=== PATIENT | female | born 1945 | race Caucasian/White ===

== ENCOUNTER 2019-10-26 10:35 | Emergency (ER) | payer MEDICARE, BC, SELFPAY ==
[2019-10-26 10:37] VITALS: BP 197/64; PULSE 92; RESP 18; TEMP 37.1; O2SAT 100
--- NOTE | 2019-10-26 11:19 | ED.URI ---
HPI - URI/Sore Throat General Chief Complaint: Upper Respiratory Infection Stated Complaint: cough/sore throat Time Seen by Provider: 10/26/19 11:19 Source: patient and RN notes reviewed Mode of arrival: ambulatory Limitations: no limitations History of Present Illness HPI Narrative: 74-year-old female who presents to the [facility] care with complaints of 3 to 4 days of sinus congestion and drainage, intermittent cough, chills, body aches and sore throat. Patient states that she has had chronic sinus issues in the past and takes daily Flonase and has been taking Mucinex also. Patient states that cough has increased in the past 24 hours, remains dry with no shortness of breath or any wheezing noted. Respirations even and non labored with no tachypnea, SAO2 100% on room air. Patient states that she did take a flu immunization this season. MD elicited complaint: fever (Has felt feverish and chilled), cough, sore throat, rhinorrhea, nasal congestion and sinus pain Pertinent past history: sinusitis and seasonal allergies Onset (ago): day(s) (5) Consistency: progressively worsening Severity: similar to previous episodes Description of mucous: clear and yellow Able to tolerate fluids by mouth: Yes Exacerbating factors: exertion, changing head position and deep breaths Relieving factors: other (flonase helps some) Associated symptoms: chills, rhinorrhea, nasal congestion, sore throat and cough Treatments prior to arrival: aspirin and other (Mucinex) Related Data Allergies Allergy/AdvReac Type Severity Reaction Status Date / Time azithromycin Allergy Unknown Unknown Verified 09/17/19 15:48 insect venom Allergy Unknown Skin Verified 09/17/19 15:48 Reaction lactase Allergy Unknown Nausea Verified 09/17/19 15:48 nut - unspecified Allergy Unknown Unknown Verified 09/17/19 15:48 prednisone Allergy Unknown Unknown Verified 09/17/19 15:48 TETANUS & DIPHTHERIA Allergy Unknown Uncoded 08/16/19 09:45 TOX,ADULT Review of Systems Review of Systems: Narrative: CONSTITUTIONAL unknown if fever,positive chills, or sweats. EYES: Denies visual changes, redness, or discharge. ENT:positive rhinorrhea, congestion, sore throat, no otalgia. CARDIOVASCULAR: Denies chest pain, palpitations, or edema. RESPIRATORY:Positive cough denies dyspnea. GASTROINTESTINAL: Denies abdominal pain, nausea, vomiting, or diarrhea. GENITOURINARY: Denies dysuria or hematuria. SKIN: Denies rash or itching. MUSCULOSKELETAL: Denies back pain, joint pain, bodyaches NEUROLOGIC: Denies headache, numbness, or weakness. PSYCHIATRIC: Denies anxiety or depression. All systems reviewed & are unremarkable except as noted in HPI and below PMFSH Past Medical History Medical History (Updated 10/29/19 @ 15:36 by Estee Carvajal NP) Arthritis GERD (gastroesophageal reflux disease) Hypothyroidism IBS (irritable bowel syndrome) Seasonal allergies Vertigo Surgical History Surgical History (Updated 10/29/19 @ 15:33 by Estee Carvajal NP) H/O breast biopsy Family History Family History Mother Family history of osteoporosis Family history of arthritis Family history of hearing loss Father Family history of glaucoma Other Family history of congestive heart failure Social History Social History (Updated 10/29/19 @ 15:31 by Estee Carvajal NP) Smoking status: Never smoker Alcohol intake: never Living arrangements: with family Occupation/Education: retired Gender identity (if verbalized by the patient): Female Comments At time of signature, agree with nursing past medical, social history. There is no relevant family history pertinent to the presenting complaint Exam Narrative: Exam Narrative: GENERAL: Well-appearing, well-nourished, and in no acute distress. HEAD: Normocephalic, atraumatic. EYES: PERRLA and EOMI. ENT: Nares red, clear to thin yellow rhinorrhea no epistaxis. Mucous membranes moist.T
== END 2019-10-26 11:40 | disposition home or self-care (01) ==
PROVIDERS: Emergency Provider Registered Nurse
DX: J10.1 Influenza due to other identified influenza virus with other respiratory manifestations (principal); M19.90 Unspecified osteoarthritis, unspecified site; K21.9 Gastro-esophageal reflux disease without esophagitis; E03.9 Hypothyroidism, unspecified
CPT/HCPCS: 87804; 99213; G0463

== ENCOUNTER 2022-06-18 13:07 | Outpatient (CLI) | payer MEDICARE, BC, SELFPAY ==
--- NOTE | 2022-06-18 13:25 | ECHO_ITS ---
Patient Info Name: Bela Epps Age: 76 years : 1945 Gender: Female Ht: 62 in Wt: 135 lbs BSA: 1.65 m2 HR: 82 bpm BP: 140 / 68 mmHg Technical Quality: Fair Exam Date: 06/18/2022 1:46 PM Exam Location: [facility] Patient Status: Outpatient Admit Date: 06/18/2022 Staff Ordering Physician: Michael Nick MD Ticket Chopper Assembler: Supriya Duff RDCS Attending Provider: Michael Nick MD Referring Physician: Sandoval HWANG; Exam Type: CA echo doppler color flow Study Info Indications R01.1 - Cardiac murmur, unspecified Complete two-dimensional, color flow and Doppler transthoracic echocardiogram is performed. Summary 1. Complete two-dimensional, color flow and Doppler transthoracic echocardiogram is performed. 2. Left ventricular chamber dimension is normal. 3. Left ventricular systolic function is normal, estimated at 65-70%. 4. The left ventricular diastolic function is grade I diastolic dysfunction. 5. E/e' 16 is elevated. 6. There is moderate aortic valve sclerosis. 7. The mitral valve has moderately calcified annulus. 8. There is mild mitral valve regurgitation. 9. There is mild tricuspid valve regurgitation. 10. No pulmonary hypertension, estimated pulmonary arterial systolic pressure is 28 mmHg. Left Ventricle E/e' 16 is elevated. Left ventricular chamber dimension is normal. Left ventricular systolic function is normal, estimated at 65-70%. The left ventricular diastolic function is grade I diastolic dysfunction. Right Ventricle Right ventricular chamber dimension is normal. Right ventricular systolic function is normal. Left Atria Left atrial chamber dimension is normal. Right Atria Right atrial chamber dimension is normal. Aortic Valve The aortic valve is trileaflet. There is moderate aortic valve sclerosis. There is no aortic valve stenosis. There is no aortic valve regurgitation. Pulmonic Valve There is no pulmonic regurgitation. Mitral Valve The mitral valve has moderately calcified annulus. There is no mitral valve stenosis. There is mild mitral valve regurgitation. Tricuspid Valve There is mild tricuspid valve regurgitation. No pulmonary hypertension, estimated pulmonary arterial systolic pressure is 28 mmHg. Pericardium/Pleural There is no pericardial effusion. Inferior Vena Cava Normal inferior vena cava with >50% collapse upon inspiration consistent with normal right atrial pressure, 5 mmHg. Aorta The aortic root size at the sinus of Valsalva is normal. Left Ventricular Outflow Tract Name Value Normal LVOT 2D LVOT Diameter 2.0 cm LVOT Doppler LVOT Peak Gradient 8 mmHg LVOT Mean Gradient 5 mmHg LVOT VTI 30 cm LVOT VTI/AV VTI Ratio 0.7 LVOT Stroke Volume 97 ml LVOT CO 21.6 l/min LVOT CI 13.1 l/min/m2 Pulmonic Valve Name
== END 2022-06-18 13:08 | disposition home or self-care (01) ==
PROVIDERS: PCP Family Medicine; Visit Provider Family Medicine
DX: R01.1 Cardiac murmur, unspecified (principal); I36.1 Nonrheumatic tricuspid (valve) insufficiency; I34.0 Nonrheumatic mitral (valve) insufficiency
CPT/HCPCS: 93306

== ENCOUNTER 2022-12-12 09:40 | Emergency (ER) | payer MEDICARE, BC, SELFPAY ==
[2022-12-12 09:46] VITALS: BP 139/68; PULSE 94; RESP 16; TEMP 36.7; O2SAT 100
--- NOTE | 2022-12-12 10:17 | ED.LOWEXIN ---
HPI - Extremity Injury (Lower) General Chief Complaint: Extremity Injury, Lower Stated Complaint: rt knee injury Source: patient, family and RN notes reviewed History of Present Illness HPI Narrative: 77-year-old female presents to urgent care with side. Patient is reporting right knee soreness for the last few days. Patient denies any injury or trauma. Denies any numbness, tingling, limited range of motion, fevers, chills, chest pain, or shortness of breath. Patient has been taking hydrocodone and ibuprofen with minimal relief. Patient reports getting a steroid injection into this knee 6 months ago by her primary care physician with good results. Some parts of this dictation were generated by voice recognition software and may contain typographical and/or grammatical inaccuracies. Related Data Allergies Allergy/AdvReac Type Severity Reaction Status Date / Time azithromycin Allergy Unknown Unknown Verified 12/12/22 09:47 insect venom Allergy Unknown Skin Verified 12/12/22 09:47 Reaction lactase Allergy Unknown Nausea Verified 12/12/22 09:47 nut - unspecified Allergy Unknown Unknown Verified 12/12/22 09:47 prednisone Allergy Unknown Shakiness Verified 12/12/22 10:16 TETANUS & DIPHTHERIA Allergy Unknown Unknown Uncoded 12/12/22 09:47 TOX,ADULT Review of Systems Review of Systems: Pertinent positives and pertinent negatives per HPI. [facility] Past Medical History Medical History Arthritis Cataract (05/03/21) Right GERD (gastroesophageal reflux disease) Hypothyroidism IBS (irritable bowel syndrome) Irritable bowel syndrome with diarrhea Seasonal allergies Vertigo Surgical History Surgical History H/O breast biopsy Family History Family History Mother Family history of osteoporosis Family history of arthritis Family history of hearing loss Father Family history of glaucoma Other Family history of congestive heart failure Social History Social History (Updated 10/06/22 @ 10:31 by Tracy Collazo MA) Smoking status: Never smoker Alcohol intake: never Lack of Transportation: No Lack of Food: Sometimes True Current Housing: I Have Housing Concerned About Future Housing: No Difficulty Paying Gas/Electric Bills: No Difficulty Paying for Meds: No Currently Unemployed: No Education: High School Diploma/GED Difficulty w/ Childcare or Family Care: No Living arrangements: with family Occupation/Education: retired Gender identity (if verbalized by the patient): Female Comments At the time of my signature, I reviewed and agree with the nursing past medical, surgical, social, and family history. There is no relevant family history pertinent to the patient complaint. Exam Narrative: GENERAL: This is a well-nourished, well-developed patient, in no apparent distress. HEAD: normocephalic, atraumatic. EYES: PERRL. Sclera clear/white. Vision is grossly intact. EARS: External ears normal, auditory canals clear and without drainage, TMs normal without perforation. Hearing grossly intact. NOSE: External nose normal with no obvious nasal discharge, nares without redness, no rhinorrhea. THROAT: Mucous membranes moist, posterior pharynx clear. NECK: Neck supple, non-tender without lymphadenopathy, masses or thyromegaly. CARDIOVASCULAR: Regular rate and rhythm without murmurs, gallops, or rubs. RESPIRATORY: Clear to auscultation. Breath sounds equal bilaterally. No wheezes, rales, or rhonchi. GASTROINTESTINAL: Abdomen soft, non-tender, nondistended. Bowel sounds are active. No hepato-splenomegaly, or palpable masses. No guarding. SKIN: warm, intact with no suspicious lesions or rash, good texture and turgor. NEURO: awake, alert, and oriented to person, place and time. There were no obvious focal neurologic abnormalities. E
== END 2022-12-12 10:22 | disposition home or self-care (01) ==
PROVIDERS: Emergency Provider Nurse Practitioner Family; PCP Family Medicine
DX: M17.11 Unilateral primary osteoarthritis, right knee (principal); M19.90 Unspecified osteoarthritis, unspecified site; K21.9 Gastro-esophageal reflux disease without esophagitis; E03.9 Hypothyroidism, unspecified
CPT/HCPCS: 99213; G0463

== ENCOUNTER → 2023-03-29 08:16 | Outpatient (CLI) | payer MEDICARE, BC, SELFPAY ==
--- NOTE | ~2023-03-29 | MR_ITS ---
MRI of the brain Clinical History: Amnesia Technique: Axial and sagittal T1-weighted images were acquired. These were followed by axial T2-weigh melanie, diffusion weighted, gradient, and FLAIR images. Findings: There is no acute infarct, internal hemorrhage, or mass lesion. There are moderate chronic microvascular ischemic changes throughout the periventricular white matter bilaterally. Ventricles and subarachnoid spaces are mildly dilated. Orbits are unremarkable. Paranasal sinuses and mastoid air cells are clear. Major intracranial flow voids are intact. Sagittal midline structures are intact. IMPRESSION: No acute infarct, intracranial hemorrhage, or mass lesion. Moderate chronic microvascular ischemic changes. Reviewed, dictated and finalized at [facility].
== END ==
PROVIDERS: PCP Family Medicine; Visit Provider Family Medicine
DX: R41.3 Other amnesia (principal)
CPT/HCPCS: 70551

== ENCOUNTER 2023-04-04 12:06 | Emergency (ER) | payer MEDICARE, BC, SELFPAY ==
[2023-04-04 12:08] VITALS: BP 152/62; PULSE 91; RESP 18; TEMP 36.8; O2SAT 100
--- NOTE | 2023-04-04 12:38 | ECG_ITS ---
Measurements Intervals [place] Rate: 77 P: 66 IA: 148 QRS: 4 QRSD: 96 T: 48 QT: 381 QTc: 431 Interpretive Statements SINUS RHYTHM POSSIBLE LEFT ATRIAL ENLARGEMENT INCOMPLETE RIGHT BUNDLE BRANCH BLOCK BORDERLINE ECG NO PREVIOUS ECG AVAILABLE FOR COMPARISON Electronically Signed On 04-04-2023 12:46:57 CDT by Rashawn Berry D.O.
[2023-04-04 14:00] LABS: Basophils Absolute Auto 0.1 K/mm3 (0.0-0.1); Basophils Percent Auto 0.6 % (0.2-1.2); Eosinophils Absolute Auto 0.1 K/mm3 (0-0.3); Eosinophils Percent Auto 1.1 % (0-4.4); Hematocrit 42.1 % (37.0-47.0); Hemoglobin 13.8 g/dL (12.0-15.0); Immature Granulocyte Absolute 0.03 K/mm3 (0.00-0.031); Immature Granulocyte Percent A 0.4 % (0-0.5); Lymphocytes Absolute Auto 1.19 K/mm3 (0.9-3.2); Lymphocytes Percent Auto 14.9 % (18.3-44.2); Mean Corpuscular HGB Conc 32.8 g/dl (32-36); Mean Corpuscular Hemoglobin 30.3 pg (26-34); Mean Corpuscular Volume 92.3 fl (80-100); Monocytes Absolute Auto 0.6 K/mm3 (0.1-0.6); Monocytes Percent Auto 7.9 % (2.6-8.5); Neutrophils Percent Auto 75.1 % (45.5-73.1); Platelet Count Result 272 k/mm3 (150-375); Red Blood Count 4.56 M/mm3 (4.2-5.4); Red Cell Distribution Width 12.7 % (11.5-14.5)
[2023-04-04 14:11] LABS: Alanine Aminotransferase 19 U/L (6-35); Albumin Level 4.6 g/dL (3.5-5.1); Alkaline Phosphatase 84 U/L (38-126); Anion Gap 9 mmol/L (8-16); Aspartate Amino Transferase 32 U/L (14-36); Bilirubin,Total 0.5 mg/dL (0.2-1.3); Blood Urea Nitrogen 12 mg/dL (7-17); Calcium 9.3 mg/dL (8.4-10.2); Carbon Dioxide 26 mmol/L (22-30); Chloride 101 mmol/L (98-107); Estimated Glomerular Filt Rate > 60; Glucose 87 mg/dL (65-110); Potassium 3.6 mmol/L (3.4-5.0); Sodium 136 mmol/L (137-145)
--- NOTE | 2023-04-04 14:27 | ED.GENADULT ---
HPI - General Adult General Chief complaint: Arrhythmia/Palpitations Stated complaint: palp Time Seen by Provider: 04/04/23 13:06 History of Present Illness HPI narrative: 77-year-old female present to the emergency department for evaluation of heart palpitations and anxiety. Patient does have a history of heart palpitations and anxiety. Patient states this morning she was having some increased anxiety and did take her buspirone. This is a medication that she had been prescribed previously but had not been taking it. After taking the medication approximately an hour and a half later she began having some increased anxiety and heart palpitations. Upon arrival to the emergency department patient states she is still having some anxiety but is no longer having heart palpitations. Patient denies any associated chest pain or shortness of breath. Patient does have follow-up with her primary care physician on Monday. Related Data Allergies Allergy/AdvReac Type Severity Reaction Status Date / Time azithromycin Allergy Unknown Unknown Verified 03/24/23 14:29 insect venom Allergy Unknown Skin Verified 03/24/23 14:29 Reaction lactase Allergy Unknown Nausea Verified 03/24/23 14:29 nut - unspecified Allergy Unknown Unknown Verified 03/24/23 14:29 prednisone Allergy Unknown Shakiness Verified 03/24/23 14:29 TETANUS & DIPHTHERIA Allergy Unknown Unknown Uncoded 03/24/23 14:29 TOX,ADULT Review of Systems Review of Systems: All systems reviewed & are unremarkable except as noted in HPI and below PMFSH Past Medical History Medical History Arthritis Cataract (05/03/21) Right GERD (gastroesophageal reflux disease) Hypothyroidism IBS (irritable bowel syndrome) Irritable bowel syndrome with diarrhea Seasonal allergies Vertigo Surgical History Surgical History H/O breast biopsy Family History Family History Mother Family history of osteoporosis Family history of arthritis Family history of hearing loss Father Family history of glaucoma Other Family history of congestive heart failure Social History Social History Smoking status: Never smoker Alcohol intake: never Lack of Transportation: No Lack of Food: Sometimes True Current Housing: I Have Housing Concerned About Future Housing: No Difficulty Paying Gas/Electric Bills: No Difficulty Paying for Meds: No Currently Unemployed: No Education: High School Diploma/GED Difficulty w/ Childcare or Family Care: No Living arrangements: with family Occupation/Education: retired Gender identity (if verbalized by the patient): Female Exam Narrative: APPEARANCE: Well appearing, no pain, no distress, well-nourished. HEAD: normocephalic, atraumatic. EYES: PERRLA/EOMI, conjunctivae clear. NOSE: Normal no drainage EARS:TMS clear with good light reflex. THROAT: Pharynx clear, no exudate. NECK: Supple. No adenopathy, no masses. RESPIRATORY: Airway patent, respirations nonlabored. Clear to auscultation bilaterally, no rales, rhonchi, wheezing. CARDIOVASCULAR: Regular rate and rhythm without murmurs rubs or gallops. ABDOMINAL: Soft, nontender, nondistended, normal bowel sounds MUSCULOSKELETAL: Moves all extremities. Strength/ROM intact, No edema, No calf tenderness. NEURO: Alert. Cranial nerves II through XII intact. Grossly intact SKIN: Warm, dry. Normal Color Course Course Emergency Course: 77-year-old female to the emergency department for evaluation of anxiety and heart palpitations. EKG showed normal sinus rhythm. Patient is afebrile with no leukocytosis. UA showed no significant evidence of infection, urine culture is pending. Patient family updated the results of the work-up and patient was comfortable plan for discharge to
[2023-04-04 15:11] LABS: Acetaminophen < 10 ug/mL (10-30)
[2023-04-04] MEDS: ACETAMINOPHEN 325 MG TABLET 650 MG PO (15:20)
[2023-04-04] MEDS: LORazepam INJ (*CRX) 2 MG/ML VIAL 0.5 MG IV PUSH (15:48)
--- NOTE | 2023-04-04 16:06 | PC.NURSE ---
Urine was sent to lab by RN. Lab states they did not receive sample. Called each floor to check for sample and was unable to locate urine.
[2023-04-04 16:43] LABS: Appearance Urine Clear (Clear); Bacteria Urine None Seen /hpf; Bilirubin Urine Negative (Negative); Blood Urine Negative (Negative); Color Urine Yellow (Yellow); Glucose Urine UA Negative (Negative); Ketones Urine 2+ mg/dL (Negative); Leukocyte Esterase Ur 1+ LEU/UL (Negative); Nitrate Urine Negative (Negative); Non Pathogenic Casts 0-2; Protein Urine Negative (Negative); Squamous Epithelial Cell Urine None seen /hpf (Few); Urobilinogen Urine 0.2 mg/dL (<2.0)
[2023-04-04 16:55] LABS: Add Urine Microscopic? YES
[2023-04-04 17:13] VITALS: BP 132/66; PULSE 90; RESP 12; O2SAT 99
== END 2023-04-04 17:22 | disposition home or self-care (01) ==
PROVIDERS: Emergency Provider Emergency Medicine; PCP Family Medicine
DX: F41.9 Anxiety disorder, unspecified (principal); T43.595A Adverse effect of other antipsychotics and neuroleptics, initial encounter; K21.9 Gastro-esophageal reflux disease without esophagitis; E03.9 Hypothyroidism, unspecified; R82.998 Other abnormal findings in urine; I45.10 Unspecified right bundle-branch block
CPT/HCPCS: 36415; 80053; 80307; 81001; 83735; 84443; 85025; 87086; 87088; 93005; 96374; 99284; A9270; J2060

== ENCOUNTER 2023-05-25 11:55 | Emergency (ER) | payer MEDICARE, BC, SELFPAY ==
--- NOTE | 2023-05-25 12:04 | ED.CHESTPAIN ---
HPI - Chest Pain General Stated Complaint: CHEST PAIN Time Seen by Provider: 05/25/23 12:00 Source: patient Mode of arrival: ambulatory Limitations: no limitations History of Present Illness HPI narrative: Bela is a 77-year-old female patient presenting to the clinic today with complaints of chest pain, palpitations, and shortness of breath x1 hour. She reports that she has a history of anxiety, heart murmur, and vertigo. Is prescribed lorazepam for anxiety however she has discontinued taking this as this makes her vertigo worse. Rates the pain currently a 10/10. Denies any cardiac history other than heart murmurs. She is a nonsmoker. Related Data Allergies Allergy/AdvReac Type Severity Reaction Status Date / Time azithromycin Allergy Unknown Unknown Verified 04/07/23 09:49 insect venom Allergy Unknown Skin Verified 04/07/23 09:49 Reaction lactase Allergy Unknown Nausea Verified 04/07/23 09:49 nut - unspecified Allergy Unknown Unknown Verified 04/07/23 09:49 prednisone Allergy Unknown Shakiness Verified 04/07/23 09:49 buspirone AdvReac Severe Agitated Verified 04/07/23 10:04 TETANUS & DIPHTHERIA Allergy Unknown Unknown Uncoded 04/07/23 09:49 TOX,ADULT Review of Systems Review of Systems: Pertinent positives per HPI. Patient denies any fever, chills, rash, headache, visual changes, dizziness, cough, runny nose, sore throat, nausea, vomiting, diarrhea, constipation, abdominal pain, or any urinary issues. PMFSH Past Medical History Medical History Arthritis Cataract (05/03/21) Right GERD (gastroesophageal reflux disease) Hypothyroidism IBS (irritable bowel syndrome) Irritable bowel syndrome with diarrhea Seasonal allergies Vertigo Surgical History Surgical History H/O breast biopsy Family History Family History Mother Family history of osteoporosis Family history of arthritis Family history of hearing loss Father Family history of glaucoma Other Family history of congestive heart failure Social History Social History Smoking status: Never smoker Alcohol intake: never Lack of Transportation: No Lack of Food: Sometimes True Current Housing: I Have Housing Concerned About Future Housing: No Difficulty Paying Gas/Electric Bills: No Difficulty Paying for Meds: No Currently Unemployed: No Education: High School Diploma/GED Difficulty w/ Childcare or Family Care: No Living arrangements: with family Occupation/Education: retired Gender identity (if verbalized by the patient): Female Comments At the time of my signature, I reviewed and agree with the nursing past medical, surgical, social, and family history. There is no relevant family history pertinent to the patient complaint. Exam Narrative: General: Well-developed, well nourished, uncomfortable Head: Normocephalic, atraumatic. Cardio: Regular rate and rhythm, s1 and s2 normal, systolic murmur appreciated-grade 3/6. Resp: Clear to auscultation bilaterally, no rhonchi, rales, wheezing or rubs. Extremities: No deformity, no edema, no cyanosis, capillary refill less than 2 seconds, peripheral pulses palpable and strong. Integumentary: [place], warm, and dry, intact without lesion, no rashes. Course Course Emergency Course: Portions of this record may have been created with voice recognition software. Level of Care: Express Care Visit Vital Signs Vital signs: Vital signs reviewed Transfer Transfered to: [place] Transportation: ALS Transfer rationale: Chest pain, palpitations, shortness of breath Accepting physician: [employer] Transfer comments: Transfer via ALS MDM - Chest Pain MDM Narrative Medical decision making narrative: At the time of visit patient is
[2023-05-25] MEDS: ASPIRIN 81 MG CHEWABLE TABLET 324 MG PO (12:13)
--- NOTE | 2023-05-25 12:18 | ECG_ITS ---
Measurements Intervals [place] Rate: 66 P: 68 [place]: 153 QRS: 12 QRSD: 96 T: 54 QT: 404 QTc: 425 Interpretive Statements SINUS RHYTHM POSSIBLE LEFT ATRIAL ENLARGEMENT INCOMPLETE RIGHT BUNDLE BRANCH BLOCK BORDERLINE ECG COMPARED TO ECG 04/04/2023 12:42:48 NO SIGNIFICANT CHANGES Electronically Signed On 05-26-2023 20:26:54 CDT by Rashawn Berry D.O.
[2023-05-25 12:19] VITALS: BP 149/62; PULSE 75; RESP 18; TEMP 36.3; O2SAT 100
--- NOTE | 2023-05-25 14:42 | PC.NURSE ---
1213 Attempted Saline lock without success-one attempt with #22 catheter. No further attempt as EMS here.
== END 2023-05-25 12:20 | disposition short-term general hospital (02) ==
PROVIDERS: Emergency Provider Nurse Practitioner Family; PCP Family Medicine
DX: R07.9 Chest pain, unspecified (principal); R06.02 Shortness of breath; R00.2 Palpitations; I45.10 Unspecified right bundle-branch block; M19.90 Unspecified osteoarthritis, unspecified site; K21.9 Gastro-esophageal reflux disease without esophagitis; E03.9 Hypothyroidism, unspecified; H26.9 Unspecified cataract
CPT/HCPCS: 93005; 99215; A9270; G0463

== ENCOUNTER 2023-05-25 12:46 | Observation (INO) | payer MEDICARE, BC, SELFPAY ==
[2023-05-25] VITALS (18 sets, daily range): BP systolic 101–146; BP diastolic 59–95; PULSE 71–84; RESP 13–22; TEMP 36.5–37; O2SAT 99–100
--- NOTE | ~2023-05-25 | XR_ITS ---
EXAMINATION: XR chest 2V 05/25/2023 13:38 INDICATION: Chest pain and rapid heart beat PROCEDURE: 2 view chest COMPARISON: No prior studies for comparison. FINDINGS: The lungs are clear. The cardiomediastinal silhouette is within normal limits. There are no pleural effusions. There is no pneumothorax suspected. IMPRESSION: 1: NO ACUTE CARDIOPULMONARY DISEASE. Reviewed, dictated and finalized at location L.
--- NOTE | ~2023-05-25 | US_ITS ---
EXAMINATION: US carotid duplex BI DATE: 05/26/2023 08:03 INDICATION: Dizziness TECHNIQUE: Grayscale, color Doppler, and pulsed Doppler images of the cervical carotid arteries were obtained. The degree of vessel stenosis is placed in one of the following categories: normal, <50%, 5 0-69%, >=70% but less than near-occlusion, near-occlusion, or total occlusion. Note that percent sten osis relative to normal distal artery lumen diameter is indirectly measured from velocity measurement s as described by Andres, et al. Radiology 2003; 229:340-346. Notes: Normal: Peak systolic velocity <125 centimeters/sec and no plaque <50%. Peak systolic velocity <125 ( EDV <40; ICA/CCA PSV ratio <2.0; used these factors only a tandem lesions or low cardiac output or co ntralateral disease) 50-69 %: PSV 125-230 (EDV 40-100; ratio 2-4) >= 70% but less than near occlusion: PSV greater than 230 (EDV > 100; ratio> 4.0) Near Occlusion: PSV that is variable; markedly narrowed lumen Occlusion: Absent flow on color/spectral Doppler and no lumen on vivar scale. COMPARISON: None. FINDINGS: RIGHT: The right common carotid artery (CCA) peak systolic velocity (PSV) is 89 cm/s. The right internal car otid artery (ICA) PSV is 70 cm/s. The right ICA end-diastolic velocity (EDV) is 16 cm/s. The right IC A/CCA PSV ratio is 0.8. The external carotid artery (ECA) PSV is 89 cm/s. There is antegrade flow in the right vertebral artery. LEFT: The left CCA PSV is 105 cm/s. The left ICA PSV is 84 cm/s. The left ICA EDV is 24 cm/s. The left ICA/ CCA PSV ratio is 0.8. The ECA PSV is 83 cm/s. There is antegrade flow in the left vertebral artery. IMPRESSION: 1. Less than 50% stenosis in the right internal carotid artery by sonographic criteria. 2. Less than 50% stenosis in the left internal carotid artery by sonographic criteria. Reviewed, dictated and finalized at location B. IMPRESSION: 1. Less than 50% stenosis in the right internal carotid artery by sonographic darío dotson. 2. Less than 50% stenosis in the left internal carotid artery by sonographic lionel rueda.
--- NOTE | ~2023-05-25 | CT_ITS ---
EXAMINATION: CT abdomen pelvis w con DATE: 05/25/2023 16:53 INDICATION: Abnormal liver function tests. Chest pain. TECHNIQUE: Computed tomography (CT) of the abdomen and pelvis was performed with 100 mL Omnipaque 350 intravenous contrast. Automated exposure control and iterative reconstruction technique were employe d. The dose-length product was 221.07 mGy-cm. COMPARISON: None. FINDINGS: The visualized portions of the lung bases demonstrate minimal atelectasis. No pleural effus ion. The heart size is normal. No pericardial effusion. There are coronary artery calcifications. The re are calcifications of the aortic valve. The liver, gallbladder, and spleen are normal. There are 1 1 mm and 6 mm cystic lesions in the pancreas. The adrenal glands and kidneys are normal. There is div erticulosis of the colon without evidence of diverticulitis. There are no dilated loops of bowel. The appendix is not visualized. There is calcified atherosclerosis of the aorta and many of the other ar teries. There are no pathologically enlarged lymph nodes. There is no free intraperitoneal fluid. The re is moderate thoracic spondylosis and severe lumbar spondylosis. IMPRESSION: 1. Cystic lesions of the pancreas measuring up to 11 mm. The differential diagnosis includes pseudocy st, intraductal papillary mucinous neoplasm (IPMN), mucinous cystic neoplasm (MCN), serous cystadenom a, and neuroendocrine tumor. Consider abdomen MRI without and with contrast in 2 years, but only if t he patient will be a potential future surgical candidate. Reviewed, dictated and finalized at location A. IMPRESSION: 1. Cystic lesions of the pancreas measuring up to 11 mm. The differential diagn osis includes pseudocyst, intraductal papillary mucinous neoplasm (IPMN), mucin ous cystic neoplasm (MCN), serous cystadenoma, and neuroendocrine tumor. Consid er abdomen MRI without and with contrast in 2 years, but only if the patient wi ll be a potential future surgical candidate.
--- NOTE | ~2023-05-25 | MR_ITS ---
MRI of the brain Clinical History: Dizziness Technique: Axial and sagittal T1-weighted images were acquired. These were followed by axial T2-weigh melanie, diffusion weighted, gradient, and FLAIR images. COMPARISON: 03/29/2023 Findings: No acute infarct, intracranial hemorrhage or mass lesion identified. Moderate chronic micro vascular ischemic changes in the periventricular white matter are present, stable from prior exam. Ventricles and subarachnoid spaces are minimally dilated. Orbits are unremarkable. Paranasal sinuses and mastoid air cells are clear. Major intracranial flow voids are intact. Sagittal midline structures are intact. IMPRESSION: No change from prior exam. No acute infarct, intracranial hemorrhage, or mass lesion. Moderate chronic microvascular ischemic changes. Reviewed, dictated and finalized at location . IMPRESSION: No change from prior exam. No acute infarct, intracranial hemorrhage, or mass l esion. Moderate chronic microvascular ischemic changes.
--- NOTE | 2023-05-25 13:02 | ECG_ITS ---
Pat ID: [id number] Last Name: Supriya First Name: Bela Date-Time Performed 05-25-2023 13:02:35 : 1945 Age: 77 yrs Race: Gender: Height/Weight: cm kg RX DX Room 304 Study Site: [facility] Study location: [address] Comment: [id number] Reading Req Provider: Calixto Cortes Measurements Intervals [place] Rate: 76 P: 75 SC: 163 QRS: 12 QRSD: 104 T: 50 QT: 398 Severity: Borderline ECG QTc: 450 Interpretive Statements SINUS RHYTHM ATRIAL PREMATURE COMPLEX POSSIBLE LEFT ATRIAL ENLARGEMENT INCOMPLETE RIGHT BUNDLE BRANCH BLOCK DELAYED PRECORDIAL R/S TRANSITION BORDERLINE ECG Electronically Signed On 05-25-2023 13:20:38 CDT by Rashawn Berry D.O. COMPARED TO ECG 05/25/2023 12:06:43 INCOMPLETE RIGHT BUNDLE-BRANCH BLOCK NOW PRESENT MTDD
[2023-05-25 13:19] LABS: Basophils Absolute Auto 0.1 K/mm3 (0.0-0.1); Basophils Percent Auto 0.4 % (0.2-1.2); Eosinophils Percent Auto 0.3 % (0-4.4); Hematocrit 42.6 % (37.0-47.0); Hemoglobin 13.9 g/dL (12.0-15.0); Immature Granulocyte Absolute 0.04 K/mm3 (0.00-0.031); Immature Granulocyte Percent A 0.3 % (0-0.5); Lymphocytes Absolute Auto 0.68 K/mm3 (0.9-3.2); Lymphocytes Percent Auto 5.1 % (18.3-44.2); Mean Corpuscular HGB Conc 32.6 g/dl (32-36); Mean Corpuscular Volume 95.1 fl (80-100); Mean Platelet Volume 10.1 fl (7.4-10.4); Monocytes Absolute Auto 0.5 K/mm3 (0.1-0.6); Monocytes Percent Auto 3.5 % (2.6-8.5); Neutrophils Absolute Auto 12.1 K/mm3 (1.3-6.7); Neutrophils Percent Auto 90.4 % (45.5-73.1); Platelet Count Result 237 k/mm3 (150-375); Red Blood Count 4.48 M/mm3 (4.2-5.4); Red Cell Distribution Width 12.6 % (11.5-14.5); White Blood Count 13.4 K/mm3 (4.5-10.0)
[2023-05-25 13:28] LABS: Alanine Aminotransferase 118 U/L (6-35); Albumin Level 4.4 g/dL (3.5-5.1); Alkaline Phosphatase 85 U/L (38-126); Anion Gap 7 mmol/L (8-16); Aspartate Amino Transferase 441 U/L (14-36); Blood Urea Nitrogen 17 mg/dL (7-17); Calcium 9.2 mg/dL (8.4-10.2); Carbon Dioxide 27 mmol/L (22-30); Chloride 101 mmol/L (98-107); Estimated CRCL calculation 51 ml/min; Estimated Glomerular Filt Rate > 60; Glucose 129 mg/dL (65-110); Lipase 213 U/L (23-300); Potassium 3.5 mmol/L (3.4-5.0); Sodium 135 mmol/L (137-145)
[2023-05-25 13:33] LABS: Prothrombin Time 13.5 Seconds (11.1-14.7)
[2023-05-25 13:34] LABS: Partial Thromboplastin Time 30.1 SECONDS (22.3-36.8)
[2023-05-25 13:39] LABS: Troponin I < 0.012 ng/mL (0.000-0.034)
--- NOTE | 2023-05-25 15:17 | ECG_ITS ---
Pat ID [id number] Last Name Supriya First Name Bela Date-Time Performed 05-25-2023 15:17:18 1945 Age 77 yrs Race Gender Height/Weight cm kg RX DX Dept Room 304 Study Site [facility] Study Location [address] Comment [id number] Reading MD Req Provider Josh Vivas. Rate [place] QRSd QT QTc P QRS T Severity 72 158 102 428 471 67 4 44 Borderline ECG SINUS RHYTHM POSSIBLE LEFT ATRIAL ENLARGEMENT INCOMPLETE RIGHT BUNDLE BRANCH BLOCK BORDERLINE ECG Electronically Signed On 05-25-2023 16:05:15 CDT by Rashawn Berry D.O. COMPARED TO ECG 05/25/2023 13:02:35 NO SIGNIFICANT CHANGES MTDD
--- NOTE | 2023-05-25 15:32 | ED.CHESTPAIN ---
HPI - Chest Pain General Chief Complaint: Chest Pain Stated Complaint: cp Time Seen by Provider: 05/25/23 14:53 History of Present Illness HPI narrative: Pt says she awoke about 0400 today with chest pain in anterior chest. Pt says the pain lasted for awhile and was not resoving so she came to ER. Pt is currently pain free. says she sees Dr Cintron and heart work up has been fine. Pt saw PCP recently and had meds for anxiety prescribed but she says they make her dizzy so she doesn't dylan them. Pt has some tingling in her fingers and toes and lips now. Related Data Allergies Allergy/AdvReac Type Severity Reaction Status Date / Time azithromycin Allergy Unknown Unknown Verified 05/25/23 13:59 insect venom Allergy Unknown Skin Verified 05/25/23 13:59 Reaction lactase Allergy Unknown Nausea Verified 05/25/23 13:59 nut - unspecified Allergy Unknown Unknown Verified 05/25/23 13:59 prednisone Allergy Unknown Shakiness Verified 05/25/23 13:59 buspirone AdvReac Severe Agitated Verified 05/25/23 13:59 TETANUS & DIPHTHERIA Allergy Unknown Unknown Uncoded 05/25/23 13:59 TOX,ADULT Review of Systems Review of Systems: All systems reviewed & are unremarkable except as noted in HPI and below PMFSH Past Medical History Medical History Arthritis Cataract (05/03/21) Right GERD (gastroesophageal reflux disease) Hypothyroidism IBS (irritable bowel syndrome) Irritable bowel syndrome with diarrhea Seasonal allergies Vertigo Surgical History Surgical History H/O breast biopsy Family History Family History Mother Family history of osteoporosis Family history of arthritis Family history of hearing loss Father Family history of glaucoma Other Family history of congestive heart failure Social History Social History Smoking status: Never smoker Alcohol intake: never Lack of Transportation: No Lack of Food: Sometimes True Current Housing: I Have Housing Concerned About Future Housing: No Difficulty Paying Gas/Electric Bills: No Difficulty Paying for Meds: No Currently Unemployed: No Education: High School Diploma/GED Difficulty w/ Childcare or Family Care: No Living arrangements: with family Occupation/Education: retired Gender identity (if verbalized by the patient): Female Exam Const: General: healthy appearing and no acute distress Nutritional Appearance: well nourished Orientation/consciousness: patient oriented x3 Neck: Neck: normal visual inspection Chest: Chest palpation & inspection: normal inspection of the chest Resp: Effort & Inspection: tachypneic Auscultation: clear to auscultation bilaterally Cardio: Rate: regular rate Rhythm: regular rhythm GI: GI Palp: Yes Soft to palpation Auscultation: normal bowel sounds Skin: General skin exam: normal color Rashes: no rashes Wounds: no wounds Neuro: General: patient oriented x3, moves all extremities, no meningeal signs and no focal motor deficits Cranial nerves: Yes Nystagmus not present Speech: normal speech Extrem: General: normal to inspection and no clubbing, cyanosis or edema Psych: Affect: Anxious affect present Attitude: cooperative Course Vital Signs Vital signs: Vital Signs Temperature 98.6 F 05/25/23 12:52 Pulse Rate 77 05/25/23 12:52 Respiratory Rate 16 05/25/23 12:52 Blood Pressure 124/84 05/25/23 12:52 Pulse Oximetry 100 05/25/23 12:52 Temperature 98.6 F 05/25/23 12:52 Pulse Rate 78 05/25/23 16:14 Respiratory Rate 18 05/25/23 16:14 Blood Pressure 132/94 H 05/25/23 16:14 Pulse Oximetry 99 05/25/23 16:14 MDM - Chest Pain MDM Narrative Medical decision making narrative: Pt presents with CP since this morning
[2023-05-25] MEDS: LORazepam INJ (*CRX) 2 MG/ML VIAL 0.5 MG IV PUSH (16:35)
[2023-05-25 17:44] LABS: Troponin I < 0.012 ng/mL (0.000-0.034)
--- NOTE | 2023-05-25 20:15 | ADMGEN ---
This patient, Bela Epps, was admitted to [address] [facility] Surg Room 304-02. Patient/family oriented to hospital policies and general routines including ID bracelet, bed and alarms, visiting hours, pain management, procedures, bathroom and other care routines, personal items, smoking policy, room service/diet, and visiting hours. Information on how to activate the Rapid Response Team has been discussed. Patient/Family are encouraged to report perceived risks to care and to ask questions if they do not understand what they are told or what they should do.
--- NOTE | 2023-05-25 20:40 | PM.IMHP ---
H&P: HPI History of Present Illness Date/Time: 05/25/23 20:40 Chief Complaint: LIGHTHEADED Narrative: 77-YEAR-OLD FEMALE WITH PAST MEDICAL HISTORY SIGNIFICANT FOR HYPOTHYROIDISM, GERD, IRRITABLE BOWEL SYNDROME, VERTIGO, ARTHRITIS. PATIENT PRESENTS TO THE EMERGENCY ROOM DUE TO LIGHTHEADEDNESS, DIZZINESS. PRELIMINARY WORKUP WAS SIGNIFICANT FOR CT OF ABDOMEN AND PELVIS WITH PANCREATIC LESION. HOWEVER PATIENT DENIES ANY WEIGHT LOSS, NAUSEA, VOMITING, DIARRHEA, NO FEVERS, NO RIGORS, NO CHILLS. PATIENT ADMITTED FOR FURTHER EVALUATION MANAGEMENT AND TREATMENT. EXAMINATION: XR chest 2V 05/25/2023 13:38 INDICATION: Chest pain and rapid heart beat PROCEDURE:? 2 view chest COMPARISON: No prior studies for comparison. FINDINGS: The lungs are clear.? The cardiomediastinal silhouette is within normal limits.? There are no pleural effusions.? There is no pneumothorax suspected.? IMPRESSION: 1:? NO ACUTE CARDIOPULMONARY DISEASE. EXAMINATION: CT abdomen pelvis w con DATE: 05/25/2023 16:53 INDICATION: Abnormal liver function tests. Chest pain. TECHNIQUE: Computed tomography (CT) of the abdomen and pelvis was performed with 100 mL Omnipaque 350 intravenous contrast. Automated exposure control and iterative reconstruction technique were employed. The dose-length product was 221.07 mGy-cm. COMPARISON: None. FINDINGS: The visualized portions of the lung bases demonstrate minimal atelectasis. No pleural effusion. The heart size is normal. No pericardial effusion. There are coronary artery calcifications. There are calcifications of the aortic valve. The liver, gallbladder, and spleen are normal. There are 11 mm and 6 mm cystic lesions in the pancreas. The adrenal glands and kidneys are normal. There is diverticulosis of the colon without evidence of diverticulitis. There are no dilated loops of bowel. The appendix is not visualized. There is calcified atherosclerosis of the aorta and many of the other arteries. There are no pathologically enlarged lymph nodes. There is no free intraperitoneal fluid. There is moderate thoracic spondylosis and severe lumbar spondylosis. IMPRESSION: 1. Cystic lesions of the pancreas measuring up to 11 mm. The differential diagnosis includes pseudocyst, intraductal papillary mucinous neoplasm (IPMN), mucinous cystic neoplasm (MCN), serous cystadenoma, and neuroendocrine tumor. Consider abdomen MRI without and with contrast in 2 years, but only if the patient will be a potential future surgical candidate. Rate 72 TX 158 QRSd 102 QT 428 QTc 471 --[place]-- P 67 QRS 4 T 44 SINUS RHYTHM POSSIBLE LEFT ATRIAL ENLARGEMENT INCOMPLETE RIGHT BUNDLE BRANCH BLOCK BORDERLINE ECG COMPARED TO ECG 05/25/2023 13:02:35 NO SIGNIFICANT CHANGES Electronically Signed On 05-25-2023 16:05:15 CDT by Rashawn Berry D.O. Review of Systems Review of Systems: LIGHTHEADEDNESS Constitutional: Constitutional: Denies chills, Denies fatigue, Denies fever(s), Denies night sweats, Reports poor appetite and Reports weakness Eyes: Eyes: Denies change in vision ENT: Denies dysphagia and Denies odynophagia Cardiovascular: Cardiovascular: Denies chest pain, Denies radiating jaw, neck or arm pain and Denies palpitations Respiratory: Respiratory: Denies chest congestion, Denies cough and Denies excessive phlegm production Gastrointestinal: Gastrointestinal: Denies abdominal pain, Denies dyspepsia, Denies diarrhea, Denies nausea and Denies vomiting PMFSH Past Medical History Medical History Arthritis Cataract (05/03/21) Right GERD (gastroesophageal reflux disease) Hypothyroidism IBS (irritable bowel syndrome) Irritable bowel syndrome with diarrhea Seasonal allergies Vertigo Surgical History Surgical History H/O breast biopsy Family History Family History Mother
[2023-05-25 22:14] LABS: Troponin I < 0.012 ng/mL (0.000-0.034)
[2023-05-26 06:00] VITALS: BP 155/75; PULSE 93; RESP 14; TEMP 36.2; O2SAT 100
[2023-05-26] MEDS: LEVOTHYROXINE SODIUM 75 MCG TABLET PO (06:26)
[2023-05-26] MEDS: LORazepam (*CRX) 0.5 MG TABLET PO (10:07)
[2023-05-26 14:00] VITALS: BP 124/54; PULSE 74; RESP 18; TEMP 36.4; O2SAT 99
[2023-05-26 15:15] VITALS: BP 134/58
[2023-05-26 15:20] VITALS: BP 148/69
[2023-05-26 15:25] VITALS: BP 136/73
--- NOTE | 2023-05-26 15:54 | PM.DS ---
DS: Admitting Diagnosis Discharge Date 05/26/23 Admitting Diagnosis dizziness DS: Discharge Diagnosis Discharge Diagnosis (1) Elevated liver enzymes: Code(s): R74.8 - Abnormal levels of other serum enzymes Status: Acute (2) Pancreatic lesion: Code(s): K86.9 - Disease of pancreas, unspecified Status: Acute (3) Dizziness: Code(s): R42 - Dizziness and giddiness Status: Acute DS: Summary Hospital Course Hospital Course: A 77F w/ PMH GERD, hypothyroidism, IBS, and reported vertigo presents with dizziness for a few days. She has quite the hypersensitive personality, and although she is accompanied by her and son she is anxious. She reports anxiety, which the family also observes, then she feels her heart is racing and she becomes dizzy. She denies any spinning or imbalance or nausea. Flores hallpike testing was negative, and no recorded tachycardia while inpatient. She also had a MRI head which was unremarkable. while in the room she again reported being anxious. she takes lorazepam but it makes her even more dizzy, so she has cut that pill in half. I advised her that so far with our extensive testing she should have anxiety managed more closely by her PCP, to which she agreed. during her stay she had elevated LFTs and a Ct abdomen which reports a cystic lesions up to 11mm. she did have jaundice as a child. she and the family do not want to pursue further workup and would rather have more workup outpatient. she will have CBC and CMP in 1 week with results forwarded to her PCP then he can manage, including a referral to hepatology. More than 30 minutes spent on discharge planning and documentation. Time Spent with Patient Time attestation: Total time spent providing and/or coordinating discharge services: Exam Narrative: orthostatic blood pressure and HR stable. flores hallpike testing negative. Const: General: cooperative and no acute distress Resp: Effort & Inspection: normal respiratory effort Auscultation: clear to auscultation bilaterally Cardio: Rate: regular rate Rhythm: regular rhythm Heart sounds: S1 normal heart sound present and S2 normal heart sound present GI: GI Palp: No abdominal tenderness Auscultation: normal bowel sounds DS: Data Data Completed and Pending Labs on day of discharge: Labs from last 24 hours 05/25/23 05/25/23 20:44 17:15 Troponin I < 0.012 < 0.012 Discharge Plan Discharge Attending physician on discharge: Minna Galvan Discharging Clinician: Minna Galvan Patient Disposition: Home, Self-Care Activity: may shower Diet: heart healthy Stand Alone Forms: General Discharge Information Follow-up/Referrals: Michael Nick MD [Primary Care Provider] - Discharge Medications: No Action levothyroxine [Synthroid] 75 mcg tablet 75 mcg PO DAILY Qty: 90 3RF Rx Instructions: Pt has failed generic again. Needs brand name Synthroid lorazepam [Ativan] 0.5 mg tablet 0.5 mg PO BID PRN (Reason: anxiety) Qty: 60 1RF Other Ambulatory Orders: Complete Blood Count no Diff (Routine) Timeframe: 2 Weeks Location: Determined by Patient Ordered By: Minna Galvan Comprehensive Metabolic Panel (Routine) Timeframe: 1 Week Location: Determined by Patient Ordered By: Minna Galvan Date of admission: 05/25/23 17:38 Primary Care Provider: Michael Nick Admitting Provider: Josh Levy Attending physician on admission: Josh Levy Condition: Stable
== END 2023-05-26 16:25 | disposition home or self-care (01) ==
LOC: ANHED 17:25 → ANH3MEDSUR 19:43
PROVIDERS: Emergency Medicine; Admitting Provider Internal Medicine; Emergency Provider Emergency Medicine; PCP Family Medicine; Visit Provider General Practice
DX: R74.8 Abnormal levels of other serum enzymes (principal); K86.9 Disease of pancreas, unspecified; I49.1 Atrial premature depolarization; I45.10 Unspecified right bundle-branch block; F41.1 Generalized anxiety disorder; F41.0 Panic disorder [episodic paroxysmal anxiety]; J84.10 Pulmonary fibrosis, unspecified; M81.0 Age-related osteoporosis without current pathological fracture; M19.90 Unspecified osteoarthritis, unspecified site; I08.3 Combined rheumatic disorders of mitral, aortic and tricuspid valves; R94.5 Abnormal results of liver function studies; K21.9 Gastro-esophageal reflux disease without esophagitis; E03.9 Hypothyroidism, unspecified; K58.0 Irritable bowel syndrome with diarrhea; R42 Dizziness and giddiness; J30.2 Other seasonal allergic rhinitis; Z82.61 Family history of arthritis; Z84.89 Family history of other specified conditions
CPT/HCPCS: 36415; 70551; 71046; 74177; 80053; 83690; 84484; 85025; 85610; 85730; 93005; 93880; 96374; 99215; 99285; A9270; G0378; G0463; J2060; Q9967

== ENCOUNTER 2023-06-02 08:17 | Outpatient (CLI) | payer MEDICARE, BC, SELFPAY ==
[2023-06-02 09:21] LABS: Hematocrit 42.2 % (37.0-47.0); Hemoglobin 13.8 g/dL (12.0-15.0); Mean Corpuscular HGB Conc 32.7 g/dl (32-36); Mean Corpuscular Hemoglobin 30.9 pg (26-34); Mean Corpuscular Volume 94.6 fl (80-100); Mean Platelet Volume 10.6 fl (7.4-10.4); Platelet Count Result 271 k/mm3 (150-375); Red Blood Count 4.46 M/mm3 (4.2-5.4); Red Cell Distribution Width 12.5 % (11.5-14.5); White Blood Count 5.3 K/mm3 (4.5-10.0)
[2023-06-02 14:09] LABS: Alanine Aminotransferase 32 U/L (6-35); Albumin Level 4.4 g/dL (3.5-5.1); Alkaline Phosphatase 72 U/L (38-126); Anion Gap 7 mmol/L (8-16); Aspartate Amino Transferase 28 U/L (14-36); Bilirubin,Total 0.8 mg/dL (0.2-1.3); Blood Urea Nitrogen 18 mg/dL (7-17); Calcium 9.1 mg/dL (8.4-10.2); Carbon Dioxide 28 mmol/L (22-30); Chloride 102 mmol/L (98-107); Estimated Glomerular Filt Rate > 60; Glucose 125 mg/dL (65-110); Potassium 3.5 mmol/L (3.4-5.0); Sodium 137 mmol/L (137-145)
== END 2023-06-02 08:18 | disposition home or self-care (01) ==
LOC: ANHLAB 08:20
PROVIDERS: PCP Family Medicine; Visit Provider General Practice
DX: R74.8 Abnormal levels of other serum enzymes (principal)
CPT/HCPCS: 36415; 80053; 85027

== ENCOUNTER 2023-12-29 11:01 | Outpatient (CLI) | payer MEDICARE, BC, SELFPAY ==
[2023-12-29 20:00] LABS: Thyroid Stimulating Hormone 0.985 uIU/mL (0.465-4.680)
== END 2023-12-29 11:02 | disposition home or self-care (01) ==
LOC: ANHGOSHLAB 11:02
PROVIDERS: PCP Family Medicine; Visit Provider Family Medicine
DX: E03.9 Hypothyroidism, unspecified (principal)
CPT/HCPCS: 36415; 84443

== ENCOUNTER 2024-02-06 20:36 | Inpatient (IN) | payer MEDICARE, BC, SELFPAY ==
[2024-02-06] VITALS (8 sets, daily range): BP systolic 101–123; BP diastolic 40–85; PULSE 31–106; RESP 15–18; TEMP 36.8–37.1; O2SAT 99–100
--- NOTE | ~2024-02-06 | XR_ITS ---
EXAMINATION: XR chest 2V DATE: 02/09/2024 13:57 INDICATION: Pacer placement. TECHNIQUE: Frontal and lateral views of the chest were obtained. COMPARISON: Chest single view 02/08/2024, CT abdomen and pelvis 05/25/2023 FINDINGS: There is mild scarring at the lung apices. No pleural effusion or pneumothorax. The heart s ize is normal. There is a left chest wall pacer with leads in the right atrium and right ventricle. IMPRESSION: 1. Mild scarring at the lung apices. Reviewed, dictated and finalized at location A.
--- NOTE | ~2024-02-06 | XR_ITS ---
EXAMINATION: XR chest 1V portable DATE: 02/08/2024 14:11 INDICATION: Pacer placement. TECHNIQUE: A single frontal view of the chest was obtained. COMPARISON: Chest single view 02/07/2024, CT abdomen and pelvis 05/25/2023 FINDINGS: There is mild scarring at left lung apex. No pleural effusion or pneumothorax. The heart si ze is normal. A right internal jugular central venous catheter is seen with tip in the superior vena cava. There is a left chest wall pacer with leads in the right atrium and right ventricle. IMPRESSION: 1. Mild scarring at left lung apex. Reviewed, dictated and finalized at location A.
--- NOTE | ~2024-02-06 | XR_ITS ---
EXAMINATION: XR chest 1V portable Exam Date/Time: 02/06/2024 21:00 CDT HISTORY: Syncopal episode, low HRs Comparison: 05/25/2023. RESULT: Lines, tubes, and devices: None. Lungs and pleura: Clear. Cardiomediastinal silhouette: Stable. Other: No acute osseous or upper abdominal finding. IMPRESSION: No acute cardiopulmonary process. Reviewed, dictated and finalized at location K.
--- NOTE | ~2024-02-06 | XR_ITS ---
Portable chest x-ray Comparison: 02/06/2024 Clinical History: Temporary transvenous pacer Findings: Transvenous pacer wire/lead is present. Lungs are clear, without focal consolidation or pl eural effusion. No pneumothorax. Cardiomediastinal silhouette is stable. Bones and soft tissues are u nremarkable. Impression: Transvenous pacer lead is in place. Clear lungs. Reviewed, dictated and finalized at location . Impression: Transvenous pacer lead is in place. Clear lungs.
--- NOTE | 2024-02-06 20:52 | ECG_ITS ---
SEE SCANNED COPY FOR CONFIRMED REPORT MTDD
[2024-02-06] MEDS: ASPIRIN 81 MG CHEWABLE TABLET 324 MG PO (21:00)
--- NOTE | 2024-02-06 21:01 | PC.NURSE ---
Pts rhythm converted during the time of triage assessment, repeat EKG was preformed.
[2024-02-06 21:03] LABS: Basophils Absolute Auto 0.1 K/mm3 (0.0-0.1); Basophils Percent Auto 0.6 % (0.2-1.2); Eosinophils Absolute Auto 0.1 K/mm3 (0-0.3); Eosinophils Percent Auto 1.2 % (0-4.4); Hematocrit 38.4 % (37.0-47.0); Hemoglobin 12.8 g/dL (12.0-15.0); Immature Granulocyte Absolute 0.03 K/mm3 (0.00-0.031); Immature Granulocyte Percent A 0.3 % (0-0.5); Lymphocytes Absolute Auto 1.45 K/mm3 (0.9-3.2); Lymphocytes Percent Auto 16.9 % (18.3-44.2); Mean Corpuscular HGB Conc 33.3 g/dl (32-36); Mean Corpuscular Hemoglobin 31.7 pg (26-34); Mean Platelet Volume 9.9 fl (7.4-10.4); Monocytes Absolute Auto 0.6 K/mm3 (0.1-0.6); Monocytes Percent Auto 6.5 % (2.6-8.5); Neutrophils Absolute Auto 6.4 K/mm3 (1.3-6.7); Neutrophils Percent Auto 74.5 % (45.5-73.1); Platelet Count Result 207 k/mm3 (150-375); Red Blood Count 4.04 M/mm3 (4.2-5.4); Red Cell Distribution Width 12.4 % (11.5-14.5); White Blood Count 8.6 K/mm3 (4.5-10.0)
[2024-02-06 21:14] LABS: Alanine Aminotransferase 29 U/L (6-35); Albumin Level 4.2 g/dL (3.5-5.1); Alkaline Phosphatase 66 U/L (38-126); Anion Gap 9 mmol/L (4-12); Aspartate Amino Transferase 55 U/L (14-36); Bilirubin,Total 0.4 mg/dL (0.2-1.3); Blood Urea Nitrogen 26 mg/dL (7-17); Calcium 9.5 mg/dL (8.4-10.2); Carbon Dioxide 24 mmol/L (22-30); Chloride 106 mmol/L (98-107); Estimated CRCL calculation 44 ml/min; Estimated Glomerular Filt Rate > 60; Glucose 156 mg/dL (65-110); Lipase 176 U/L (23-300); Potassium 3.5 mmol/L (3.4-5.0); Prothrombin Time 13.3 Seconds (11.1-14.7); Sodium 139 mmol/L (137-145)
[2024-02-06 21:15] LABS: Partial Thromboplastin Time 32.4 Seconds (22.3-36.8)
--- NOTE | 2024-02-06 21:17 | ED.GENADULT ---
HPI - General Adult General Chief complaint: Syncope Stated complaint: SYNCOPE, HEART BLOCK Time Seen by Provider: 02/06/24 21:06 History of Present Illness HPI narrative: Patient is 78-year-old female who presents emergency department with chief complaint of syncope and dizziness. Patient reports that this afternoon she started feeling dizzy then had a syncopal episode. When EMS was called they found her to be bradycardic and then the patient became tachycardic. EMS was concerned that there may have been a high-level AV block when she was bradycardic. The patient reports that she feels a little better now but does have a lightheaded feeling the patient denies chest pain denies shortness of breath Related Data Allergies Allergy/AdvReac Type Severity Reaction Status Date / Time No Known Allergies Allergy Verified 02/06/24 20:54 Review of Systems Review of Systems: A 10 system review of systems was completed on the patient and is negative except for what is stated in the HPI. Nursing and ancillary documentation was reviewed. Exam Narrative: GENERAL: Well-appearing, well-nourished, and in no acute distress. HEAD: Normocephalic, atraumatic. EYES: PERRLA and EOMI. ENT: Nares clear, no rhinorrhea or epistaxis. Mucous membranes moist. NECK: Supple. CHEST: Clear to auscultation. No respiratory distress. HEART: Regular rate and rhythm. No murmur heard. Normal peripheral pulses. ABDOMEN: Soft, nontender, nondistended, normal active bowel sounds. EXTREMITIES: Normal range of motion. No edema. SKIN: Warm, dry, no rash. NEURO: No focal deficits. Alert and oriented x3. PSYCH: Normal mood and affect. Course Vital Signs Vital signs: Vital Signs Pulse Rate 31 L 02/06/24 20:37 Respiratory Rate 15 02/06/24 20:37 Blood Pressure 123/40 L 02/06/24 20:37 Pulse Oximetry 99 02/06/24 20:37 Oxygen Delivery Room Air 02/06/24 20:37 Temperature 37.1 C 02/06/24 21:02 Pulse Rate 106 H 02/06/24 21:02 Respiratory Rate 18 02/06/24 21:02 Blood Pressure 115/62 02/06/24 21:02 Pulse Oximetry 99 02/06/24 21:02 Oxygen Delivery Room Air 02/06/24 20:37 Medical Decision Making MDM Narrative Medical decision making narrative: Differential diagnosis includes dysrhythmia, electrolyte abnormality, renal failure, ACS Initial presentation EKG showed a bradycardia with a rate of 32 there did appear to be a third-degree heart block at that time the patient then approximately 10 minutes later developed tachycardia with a rate of 102 The patient is currently awake has a normal blood pressure Laboratory studies were obtained on the patient showed a white count 8.6 hemoglobin of 12.8 patient is not on anticoagulants electrolytes showed a potassium of 3.5 BUN was 26 and creatinine was 0.7 Chest x-ray showed no acute abnormalities Patient will be continued on traffic monitor specialist and pacer pads were placed on the patient in case the patient does require transcutaneous pacing Vital Signs Vital Signs: Vital Signs Pulse Rate 31 L 02/06/24 20:37 Respiratory Rate 15 02/06/24 20:37 Blood Pressure 123/40 L 02/06/24 20:37 Pulse Oximetry 99 02/06/24 20:37 Oxygen Delivery Room Air 02/06/24 20:37 Temperature 37.1 C 02/06/24 21:02 Pulse Rate 106 H 02/06/24 21:02 Respiratory Rate 18 02/06/24 21:02 Blood Pressure 115/62 02/06/24 21:02 Pulse Oximetry 99 02/06/24 21:02 Oxygen Delivery Room Air 02/06/24 20:37 Lab Data 02/06/24 20:58 02/06/24 20:58 Labs: Lab Results 02/06/24 Range/Units 20:58 WBC 8.6 (4.5-10.0) K/mm3 RBC 4.04 L (4.2-5.4) M/mm3 Hgb 12.8 (12.0-15.0) g/dL Hct 38.4 (37.0-47.0) % MCV 95.0 (80-100) fl MCH 31.7 (26-34) pg MCHC 33.3 (32-36) g/dl RDW 12.4 (11.5-14.5) % Plt Count 207 (150-375) k/mm3 MPV 9.9 (7.4-10.4) fl Immature Gran % (Auto) 0.3 (0-0.5) % Neut % (Auto) 74.5 H (45.5-73.1)
[2024-02-06 21:26] LABS: Troponin I < 0.012 ng/mL (0.000-0.034)
[2024-02-06 22:44] LABS: T4 Thyroxine 9.55 ug/dL (5.53-11.0)
[2024-02-06 22:58] LABS: Thyroid Stimulating Hormone 0.834 uIU/mL (0.465-4.680)
--- NOTE | 2024-02-06 23:13 | PC.NURSE ---
Report received from JEFF Díaz.
--- NOTE | 2024-02-06 23:52 | ECG_ITS ---
[facility] [place] [address] Test Date: 2024-02-06 Pat Name: Bela Epps Department: Room: ICU Gender: F [employer]: Freddie : 1945 Requested By: Carlotta Law Order Number: [id number] Reading MD: Rashawn Berry D.O. Measurements Intervals [place] Rate: 29 P: 0 MS: 0 QRS: 25 QRSD: 82 T: 39 QT: 528 QTc: 370 Interpretive Statements SINUS RHYTHM WITH COMPLETE HEART BLOCK SLOW JUNCTIONAL ESCAPE RHYTHM BASELINE ARTIFACT- I, II, III, AVR, AVL ABNORMAL ECG No previous ECG available for comparison Electronically Signed On 02-08-2024 12:57:15 CDT by Rashawn Berry D.O.
[2024-02-07] VITALS (32 sets, daily range): BP systolic 0–159; BP diastolic 0–83; PULSE 29–135; RESP 17–22; TEMP 35.8–38; O2SAT 94–100; BMI 22.6
--- NOTE | 2024-02-07 | ECHO_ITS ---
Patient Info Name: Bela Epps Age: 78 years : 1945 Gender: Female Ht: 62 in Wt: 123 lbs BSA: 1.57 m2 HR: 83 bpm BP: 141 / 83 mmHg Heart Rhythm: Sinus Rhythm Technical Quality: Good Exam Date: 02/07/2024 7:36 AM Exam Location: Echo Lab Patient Status: Inpatient Admit Date: 02/06/2024 Staff Ordering Physician: Carlotta Mukherjee DO Cdl Driver: Germain Banda RDCS Attending Provider: Carlotta Mukherjee DO Referring Physician: Lonny BLOUNT; Exam Type: CA echo doppler color flow Study Info Indications R00.1 - Bradycardia, unspecified Complete two-dimensional, color flow and Doppler transthoracic echocardiogram is performed. Summary 1. Complete two-dimensional, color flow and Doppler transthoracic echocardiogram is performed. 2. Left ventricular chamber dimension is normal. 3. Left ventricular systolic function is normal, estimated at 65-70%. 4. There is mildly increased left ventricular wall thickness. 5. The left ventricular diastolic function is grade I diastolic dysfunction. 6. Left atrial chamber dimension is mildly enlarged. 7. There is mild aortic valve stenosis with a peak velocity of 225 cm/s, mean gradient of 10 mmHg, and aortic valve area of 1.6 cm2. 8. There is moderate aortic valve calcification. 9. The mitral valve has thickened leaflets. 10. There is mild mitral valve stenosis. 11. There is mild mitral valve regurgitation. 12. The mitral valve annulus is mildly calcified. 13. There is mild tricuspid valve regurgitation. Left Ventricle Left ventricular chamber dimension is normal. Left ventricular systolic function is normal, estimated at 65-70%. There is mildly increased left ventricular wall thickness. The left ventricular diastolic function is grade I diastolic dysfunction. Right Ventricle Right ventricular chamber dimension is normal. Right ventricular systolic function is normal. Linear artifact in right ventricle suggestive of catheter(s), pacemaker lead(s), or ICD lead(s). Left Atria Left atrial chamber dimension is mildly enlarged. Right Atria Right atrial chamber dimension is normal. Atrial Septum Intact interatrial septum visualized by color flow imaging. Aortic Valve There is mild aortic valve stenosis with a peak velocity of 225 cm/s, mean gradient of 10 mmHg, and aortic valve area of 1.6 cm2. There is trace aortic valve regurgitation. There is moderate aortic valve calcification. Pulmonic Valve The pulmonic valve is normal. There is no pulmonic valve stenosis. There is trace pulmonic regurgitation. Mitral Valve The mitral valve has thickened leaflets. There is mild mitral valve stenosis. There is mild mitral valve regurgitation. The mitral valve annulus is mildly calcified. Tricuspid Valve The tricuspid valve leaflets are normal. There is no significant tricuspid valve stenosis. There is mild tricuspid valve regurgitation. No pulmonary hypertension, estimated pulmonary arterial systolic pressure is 28 mmHg. Pericardium/Pleural The pericardium appears normal. There is no pericardial effusion. Inferior Vena Cava Normal inferior vena cava with >50% collapse upon inspiration consistent with normal right atrial pressure, 5 mmHg. Aorta The aortic root size at the sinus of Valsalva is normal. Left Ventricular Outflow Tract Name Value Normal LVOT 2D
--- NOTE | 2024-02-07 | ADMGEN ---
This patient, Bela Epps, was admitted to Intensive Care Unit-5 on 02/06/24 at 2330. Patient/family oriented to hospital policies and general routines including ID bracelet, bed and alarms, visiting hours, pain management, procedures, bathroom and other care routines, personal items, smoking policy, room service/diet, and visiting hours. Information on how to activate the Rapid Response Team has been discussed. Patient/Family are encouraged to report perceived risks to care and to ask questions if they do not understand what they are told or what they should do.
[2024-02-07 00:50] LABS: Troponin I 0.014 ng/mL (0.000-0.034)
[2024-02-07] MEDS: DOPamine 400 MG/D5W 250 ML 400 MG/250 ML BAG 5.25 MG IV CONT (01:00)
[2024-02-07] MEDS: LORazepam INJ (*CRX) 2 MG/ML VIAL 0.5 MG IV PUSH ×2 (02:12→15:35)
--- NOTE | 2024-02-07 02:13 | PC.NURSE ---
0100 HR 29, unable to obtain a blood pressure. Dopamine initiated. 0110 Transcutaneous pacing initiated, settings: 40PPM 10MA. Education provided on transcutaneous pacing. Patient anxious with transcutaneous pacing My heart is beating out of my chest! reinforced education. 0130 Dr. Mukherjee at bedside. Patient remains anxious, patient arguing with Dr. Mukherjee that she is getting up to the bathroom. Dr. Mukherjee reinforced education.
--- NOTE | 2024-02-07 02:20 | PM.IMHP ---
H&P: HPI History of Present Illness Date/Time: 02/07/24 02:20 Chief Complaint: Syncope Narrative: 78-year-old female with a past medical history of mild cognitive impairment, anxiety, panic attack, hypothyroidisn who presented from home via EMS after syncopal episode. The patient started to feel dizzy and weak and had a syncopal episode. Episode lasted about 30 seconds according to the patient's son who witnessed the event. When EMS arrived on scene the patient was found to be bradycardic. EMS was concern for high-degree AV block and EKG performed in the ER did demonstrate third-degree block. After patient arrived to ER she flipped back into sinus tachycardia. When her rhythm change she did feel better her lightheaded feeling had resolved. She denies shortness of breath or chest pain to the ER staff. By the time the patient arrived to the ICU she was confused and uncooperative. At that point the patient had also flipped back into a high-degree heart block and was bradycardic with a heart rate down to 29. Her blood pressure was unreadable at that time. The patient was immediately placed on dopamine drip and external pacers which had been placed in the ER were started. She was more vigorous after these interventions and was irritable with staff that they would not let her walk to the bathroom. She was unable to void on a bedpan and subsequently a Garcia catheter was placed. She was quite angry with nursing staff that they place a Garcia catheter and stated that she still needed to go to the bathroom and that we were stupid. She stated that she was going to get up and leave. Both myself and nursing staff tried to redirect the patient multiple times. The patient seems mildly confused and does not understand this consequences despite multiple discussions. Patient does take Klonopin and Ativan at home. A dose of Ativan was ordered and the patient's family was contacted the patient's son came in to stay with the patient. The patient was so I rate over the Garcia catheter that I was unable to obtain any meaningful history from the patient. Subsequently, majority HPI was obtained from past medical records, external medication reconciliation, physician and nursing report. Review of Systems Review of Systems: 12 systems were reviewed with pertinent positives and negatives per HPI. Except as documented in the HPI, all other systems were reviewed and are negative. [facility] Past Medical History Medical History (Updated 02/07/24 @ 03:11 by Carlotta Mukherjee DO) Acne rosacea, erythematous telangiectatic type Age-related osteoporosis without current pathological fracture Arthritis Atherosclerosis of aorta Benign positional vertigo Bilateral sciatica Gastro-esophageal reflux disease with esophagitis Generalized anxiety disorder Hypothyroidism (acquired) IBS (irritable bowel syndrome) Mass of pancreas Mixed hyperlipidemia Pancreatic lesion (05/2023) Cystic lesion pancreas measuring up to 11 mm with broad differential. Panic disorder [episodic paroxysmal anxiety] Pulmonary fibrosis, unspecified Seasonal allergies Surgical History Surgical History (Updated 02/07/24 @ 02:37 by Carlotta Mukherjee DO) H/O breast biopsy Status post cataract extraction of both eyes with insertion of intraocular lens Family History Family History Mother Family history of osteoporosis Family history of arthritis Family history of hearing loss Father Family history of glaucoma Other Family history of congestive heart failure Social History Social History (Updated 02/07/24 @ 02:47 by Carlotta Mukherjee DO) Social History: Patient lives in her own home. Her 2 sons live nearby. Code status: Full code per EMR Smoking status: Never smoker Second hand tobacco smoke exposure: Yes Alcohol intake: never Substance use: never Substance use type: does not use Do You Feel Safe in your H
[2024-02-07 02:44] LABS: MRSA (PCR) NOT DETECTED (NOT DETECTE)
--- NOTE | 2024-02-07 03:28 | ECG_ITS ---
[facility] [address] Test Date: 2024-02-07 Pat Name: Bela Epps Department: Room: ICU Gender: F City Planning Engineer: Kristina : 1945 Requested By: Carlotta Law Order Number: [id number] Reading MD: Rashawn Berry D.O. Measurements Intervals [place] Rate: 34 P: 73 WI: 205 QRS: 16 QRSD: 94 T: 52 QT: 395 QTc: 300 Interpretive Statements SINUS RHYTHM WITH FIRST DEGREE AV BLOCK FREQUENT ATRIAL PREMATURE COMPLEXES BASELINE ARTIFACT- I, II, III, AVR, AVL, AVF, V1-V6 ABNORMAL ECG Compared to ECG 02/06/2024 23:52:49 ATRIAL PREMATURE COMPLEXES COMPLETE HEART BLOCK RESOLVED Electronically Signed On 02-08-2024 13:56:37 CDT by Rashawn Berry D.O.
[2024-02-07 03:43] LABS: Troponin I 0.024 ng/mL (0.000-0.034)
--- NOTE | 2024-02-07 05:41 | PM.CNCAR ---
Assessment and Plan Assessment and plan (1) Heart block AV third degree: Code(s): I44.2 - Atrioventricular block, complete Status: Acute Assessment and Plan: TSH level and Free T4 level is normal. Successful placement of temporary transvenous pacer in the RIJ in the drop crew laborer. Echocardiogram from 06/2022 shows LVEF 65-70%, mild MR, mild TR. Repeat echocardiogram is pending. Will need permanent pacemaker. Will coordinate with Dr. Hernandez regarding the timing of this. (2) Hypothyroidism (acquired): Code(s): E03.9 - Hypothyroidism, unspecified Status: Acute Assessment and Plan: TSH level and Free T4 level is normal. Continue Levothyroxine. Plan Recommendations and plan discussed with Chemical Educator, Dr. Ball. Case will be discussed with Dr. Hernandez as well. History of Present Illness History of Present Illness Consult date/time: 02/07/24 05:41 Requesting physician: Raciel Hoffmann MD Consult reason: Other (Heart block) Reason For Visit: Bradycardia Third-Degree Heart Block Narrative: We are consulted for complete heart block. This is an 78 year old female with hypothyroidism, anxiety / panic attack mild cognitive impairment who presented from home via EMS after syncopal episode. The patient felt dizzy and weak and then had a syncopal episode. Son who witnessed the event reported the episode to be about 30 seconds. Noted to be bradycardic upon EMS arrival. EKG upon ER arrival showed complete heart block. Patient did go into sinus rhythm while in the ED, and she reported feeling better. However, when she got to the ICU, she was back in heart block. She was noted to be hypotensive when in heart block. Dopamine was started, which was increased up to 7.5 and patient was started on transcutaneous pacing. At that point I was called to place temporary transvenous pacer. Review of Systems Review of Systems: All systems reviewed & are unremarkable except as noted in HPI and below (HPI) [facility] Past Medical History Medical History (Updated 02/07/24 @ 05:46 by Isabella Ashford MD) Acne rosacea, erythematous telangiectatic type Age-related osteoporosis without current pathological fracture Arthritis Atherosclerosis of aorta Benign positional vertigo Bilateral sciatica Gastro-esophageal reflux disease with esophagitis Generalized anxiety disorder Hypothyroidism (acquired) IBS (irritable bowel syndrome) Mass of pancreas Mixed hyperlipidemia Pancreatic lesion (05/2023) Cystic lesion pancreas measuring up to 11 mm with broad differential. Panic disorder [episodic paroxysmal anxiety] Pulmonary fibrosis, unspecified Seasonal allergies Surgical History Surgical History H/O breast biopsy Status post cataract extraction of both eyes with insertion of intraocular lens Family History Family History Mother Family history of osteoporosis Family history of arthritis Family history of hearing loss Father Family history of glaucoma Other Family history of congestive heart failure Social History Social History Social History: Patient lives in her own home. Her 2 sons live nearby. Code status: Full code per EMR Smoking status: Never smoker Second hand tobacco smoke exposure: Yes Alcohol intake: never Substance use: never Substance use type: does not use Do You Feel Safe in your Home?: Yes Lack of Transportation: No Lack of Food: Never True Current Housing: I Have Housing Concerned About Future Housing: No Difficulty Paying Gas/Electric Bills: No Difficulty Paying for Meds: No Currently Unemployed: No Education: High School Diploma/GED Difficulty w/ Childcare or Family Care: No Living arrangements: with family Occupation/Education: retired Gender identity (if verbalized by the pa
--- NOTE | 2024-02-07 05:50 | WPDMODSED ---
Moderate Sedation Note-Pt Data Patient Data Diagnosis: Complete heart block Present Complaint: Complete heart block Procedure to be performed/Plan: Insertion of temporary transvenous pacer Allergies Allergy/AdvReac Type Severity Reaction Status Date / Time azithromycin Allergy Unknown Unknown Verified 12/29/23 10:03 insect venom Allergy Unknown Skin Verified 12/29/23 10:03 Reaction lactase Allergy Unknown Nausea Verified 12/29/23 10:03 nut - unspecified Allergy Unknown Unknown Verified 12/29/23 10:03 prednisone Allergy Unknown Shakiness Verified 12/29/23 10:03 buspirone AdvReac Severe Agitated Verified 12/29/23 10:03 TETANUS & DIPHTHERIA Allergy Unknown Unknown Uncoded 12/29/23 10:03 TOX,ADULT Home Medications Medication Instructions Recorded Confirmed Type Synthroid 88 mcg tablet 88 mcg PO DAILY #90 tabs 12/29/23 02/06/24 Rx (levothyroxine) clonazepam 0.5 mg tablet (Klonopin) 0.5 mg PO DAILY #30 tabs 12/29/23 02/06/24 Rx lorazepam 0.5 mg tablet 0.5 mg PO BID PRN Anxiety 02/06/24 02/06/24 History Current Medications: Active Medications Levothyroxine Sodium (Levothyroxine Sodium 88 Mcg Tablet) 88 mcg PO DAILY@0630 KATI Lorazepam (Lorazepam Inj (*Crx) 2 Mg/Ml Vial) 0.5 mg IV PUSH Q6H PRN PRN Reason: Anxiety Last Admin: 02/07/24 02:12 Dose: 0.5 mg Morphine Sulfate (Morphine Sulfate (*Crx) 2 Mg/Ml Inj) 2 mg IV PUSH Q2H PRN PRN Reason: Pain Rated 7-10, pacer pain Perflutren Lipid Microsphere (Perflutren Lipid Microspheres 1.5 Ml Vial Diluted To 10 Ml Total Volume) 0 ml IV PUSH ONCE PRN; Protocol PRN Reason: adequate visualization Stop: 02/10/24 02:34 Sedation/Anesthesia: No previous sedation/anesthesia problems (including family history). [facility] Past Medical History Medical History Acne rosacea, erythematous telangiectatic type Age-related osteoporosis without current pathological fracture Arthritis Atherosclerosis of aorta Benign positional vertigo Bilateral sciatica Gastro-esophageal reflux disease with esophagitis Generalized anxiety disorder Hypothyroidism (acquired) IBS (irritable bowel syndrome) Mass of pancreas Mixed hyperlipidemia Pancreatic lesion (05/2023) Cystic lesion pancreas measuring up to 11 mm with broad differential. Panic disorder [episodic paroxysmal anxiety] Pulmonary fibrosis, unspecified Seasonal allergies Surgical History Surgical History H/O breast biopsy Status post cataract extraction of both eyes with insertion of intraocular lens Family History Family History Mother Family history of osteoporosis Family history of arthritis Family history of hearing loss Father Family history of glaucoma Other Family history of congestive heart failure Social History Social History Social History: Patient lives in her own home. Her 2 sons live nearby. Code status: Full code per EMR Smoking status: Never smoker Second hand tobacco smoke exposure: Yes Alcohol intake: never Substance use: never Substance use type: does not use Do You Feel Safe in your Home?: Yes Lack of Transportation: No Lack of Food: Never True Current Housing: I Have Housing Concerned About Future Housing: No Difficulty Paying Gas/Electric Bills: No Difficulty Paying for Meds: No Currently Unemployed: No Education: High School Diploma/GED Difficulty w/ Childcare or Family Care: No Living arrangements: with family Occupation/Education: retired Gender identity (if verbalized by the patient): Female Spiritual care concerns: Yes (Yazidi) Mod Sed Physical Exam Physical Exam Pre Procedural Exam: Normal: Appearance, Neuro Exam, Extremities and Skin and Variation: Heart Rate (Transcutaneously paced) and Heart Rhythm (Transcutaneousl
--- NOTE | 2024-02-07 05:58 | P.PCNCC_ITS ---
Cardiac Cath Procedure Note Date of procedure:: 02/07/24 Performing physician:: CATHETERIZATION LABORATORY REPORT Procedure Date: 02/07/2024 Supervisor Sheet Manufacturing: Isabella Ashford M.D., [facility]? Referring Physician: Jose Crisostomo M.D. ? Anesthesia: Versed and Fentanyl were ordered and given in my presence at 04:38, procedure ended at 05:30. Supervision of nurse monitored moderate sedation with Versed and Fentanyl was provided for 52 minutes. Total of Versed 1mg and Fentanyl 25mcg were administered by the Gas Compressor Operator RN Santana Metzger. Pre-op Diagnosis: Complete heart block Post-op Diagnosis: Successful placement of temporary transvenous pacer. Procedure(s): 1. Moderate sedation 2. Ultrasound-guided access of the right femoral vein and the right internal jugular vein 3. Placement of temporary transvenous pacer Access Site: Right femoral vein, right internal jugular vein Brief History and Clinical Indications: Patient is an 78 year old female who is referred for transvenous pacer for complete heart block. All risks, benefits and alternatives to transvenous pacer was discussed at [facility] with the patient and her son. Risk of complications including but not limited to bleeding, infection, arrhythmia, blood loss, groin hematoma, limb loss, emergency surgery, and even were discussed with the patient and the patient's son and all questions were answered. The patient and her son understood and wished to proceed. Written informed consent was obtained from the son due to patient's confusion. Time out called, patient name, date of , medical record number, allergies, procedure performed, identify Supervisor Sheet Manufacturing, patient and staff pavithra meier concurred with accurate data, procedure carried on. Description of Procedure: Informed consent signed and placed in the chart. Patient transferred to concrete mixing plant laborer room. Prepped and draped in usual sterile fashion. 2% lidocaine injected subcutaneously in right groin area. Right femoral vein was accessed using micropuncture technique under ultrasound guidance. 6-FR sheath placed. Attempted to insert transvenous pacer, however, pacer catheter would not advance into the RV despite multiple attempts. Therefore, we pursued RIJ access. 2% lidocaine injected subcutaneously in right neck. RIJ was accessed using micropuncture technique under ultrasound guidance. 6-FR sheath placed. Pacer catheter advanced into RV into appropriate position. There was acceptable pacing parameters. RIJ sheath sutured in place. Right femoral vein sheath was removed in the concrete mixing plant laborer and hemostasis achieved by manual pressure. ? Post Operative Condition: Stable No significant blood loss Disposition: ICU Plan: Obtain CXR. See consult note for additional recommendations and plan. ? Isabella Ashford M.D. Interventional Cardiology
--- NOTE | 2024-02-07 06:44 | PC.NURSE ---
0141 Telephoned son Milton . Requested son to sit with patient.
--- NOTE | 2024-02-07 06:46 | PC.NURSE ---
0200 Surjit Rose at bedside
--- NOTE | 2024-02-07 06:46 | PC.NURSE ---
0250 telephoned heart care exchange.
--- NOTE | 2024-02-07 06:47 | PC.NURSE ---
[address] Manuel. Updated on patient condition.
--- NOTE | 2024-02-07 06:48 | PC.NURSE ---
[address] Manuel. Dr. Ashford called per Dr. Manuel. Plan for temporary pacemaker to be placed. Dr. Ashford on her way to [place].
--- NOTE | 2024-02-07 06:50 | PCDIET ---
0344 Report given to JEFF Hollingsworth in the manufacturing lab technician.
--- NOTE | 2024-02-07 06:51 | PC.NURSE ---
0415 Patient to stucco laborer via bed.
--- NOTE | 2024-02-07 06:52 | PC.NURSE ---
0527 Report received from Blanca in energy systems laboratory director.
--- NOTE | 2024-02-07 06:54 | PC.NURSE ---
0511 Returned to ICU 5 from nursery laborer. Dopamine off. Homar pedal pulses present. Remains confused to place/situation. Son Milton in waiting room.
--- NOTE | 2024-02-07 06:55 | PC.NURSE ---
0600 Surjit Rose at bedside.
[2024-02-07] MEDS: LEVOTHYROXINE SODIUM 88 MCG TABLET PO (08:16)
--- NOTE | 2024-02-07 09:13 | WPDCNINT ---
Assessment and Plan Assessment and plan (1) Heart block AV third degree: Code(s): I44.2 - Atrioventricular block, complete Status: Acute Assessment and Plan: Patient presented with episode of syncope lasting 30 seconds according the son who witnessed the event. Upon arrival of the EMS patient was bradycardic in third-degree heart block, patient was brought to the ED which she remained in third-degree heart block and then obtained to sinus tachycardia. Patient was sent to the ICU for further management after cardiology being consulted -in the ICU patient was in third-degree heart block with heart rates in the upper 20s and blood pressures, dopamine was started with improvement in heart rate and blood pressure -cardiology successfully placed temporary transvenous pacer through the right IJ -patient will require permanent pacemaker (2) Syncope: Qualifiers: Syncope type: carotid sinus syncope Qualified Code(s): G90.01 - Carotid sinus syncope Code(s): R55 - Syncope and collapse Status: Acute Assessment and Plan: As above (3) Essential (primary) hypertension: Code(s): I10 - Essential (primary) hypertension Status: Acute Assessment and Plan: Continue to monitor blood pressures (4) Hypothyroidism (acquired): Code(s): E03.9 - Hypothyroidism, unspecified Status: Acute Assessment and Plan: Continue levothyroxine -TSH levels are within normal limits Plan DVT prophylaxis: SCDs Stress ulcer prophylaxis: Not indicated Nutrition: NPO for now Code Status: Full code Critical Care Time Spent: 45 minutes Discussed with cardiology, will schedule permanent pacemaker Due to a high probability of clinically significant, life threatening deterioration, the patient required my highest level of preparedness to intervene emergently and I personally spent this critical care time directly and personally managing the patient. This critical care time included obtaining a history; examining the patient; pulse oximetry; ordering and review of studies; arranging urgent treatment with development of a management plan; evaluation of patient's response to treatment; frequent reassessment; and discussions with other providers. It was exclusive of separately billable procedures and treating other patients and teaching time. Please see Assessment and Plan section and the rest of the note for further information on patient assessment and treatment This dictation may have been done utilizing a voice recognition system. Attempts have been made to correct errors. However, there may be uncorrected grammatical, spelling, and recognitions errors present. Benefits Technician Consult Note Consult date: 02/07/24 Reason for consult: Syncope, High-grade AV heart block (third-degree) status post temporary pacemaker placement HPI: Bela Epps is a 78 year old female with past medical history of arthritis, BPPV, GERD, general anxiety disorder, hypothyroidism, irritable bowel syndrome, pancreatic cystic lesion, hyperlipidemia, pulmonary fibrosis, panic disorder, seasonal allergies presented the ED on 02/06/2025 with complains for syncopal episode that lasted about 30 seconds, this was witnessed by the patient's son. When EMS arrived patient was bradycardic and was in high degree AV block on the EKG. In the ER she demonstrated third-degree heart block, and flipped into sinus tachycardia. Patient denies any chest pain or shortness of breath in the ER. Cardiology was consulted, and patient was transferred to the ICU for further management. Upon reaching the ICU patient was back into high degree AV block, was bradycardic with heart rates in the upper 20s. Her blood pressures were unreadable at that time, I was called and patient was started on dopamine infusion. Patient was confused and agitated in the ICU requiring restraints/sitter. Cardiology placed a temporary with transvenous pacer through the right
--- NOTE | 2024-02-07 13:05 | PC.NURSE ---
Patient c/o tightness at right neck dressing site. Dr. Ashford updated.
[2024-02-07] MEDS: BISACODYL 10 MG SUPPOSITORY RECTAL (13:42)
--- NOTE | 2024-02-07 15:30 | PC.NURSE ---
Kathya Rn and CCT at bedside. Patient trying to get out of bed, yelling and staff and family.
--- NOTE | 2024-02-07 16:23 | PC.NURSE ---
pt confused, agitated, and combative; Dr. Ball notified and received orders to start precedex drip
[2024-02-07] MEDS: dexmedeTOMIDine 400 MCG/100 ML 400 MCG/100 ML BAG IV CONT (16:29)
--- NOTE | 2024-02-07 17:00 | PC.NURSE ---
Dr. Chisholmly notified of patient condition. Precedex gtt ordered.
[2024-02-07] MEDS: LORazepam INJ (*CRX) 2 MG/ML VIAL 1 MG IV PUSH (17:05)
--- NOTE | 2024-02-07 17:59 | PC.NURSE ---
Family at bedside, decided to leave bedside so patient could rest. Contact info verified.
[2024-02-07] MEDS: MINERAL OIL/WHITE PETROLATUM OINTMENT 1 APPLIC EACH EYE (21:36)
[2024-02-07] MEDS: dexmedeTOMIDine 400 MCG/100 ML 400 MCG/100 ML BAG 18.2 MCG IV CONT (21:36)
[2024-02-08] VITALS (35 sets, daily range): BP systolic 106–181; BP diastolic 63–91; PULSE 60–74; RESP 14–29; TEMP 35.8–36.6; O2SAT 95–100
[2024-02-08] MEDS: dexmedeTOMIDine 400 MCG/100 ML 400 MCG/100 ML BAG 14 MCG IV CONT (03:09)
[2024-02-08 04:11] LABS: Basophils Percent Auto 0.4 % (0.2-1.2); Eosinophils Absolute Auto 0.1 K/mm3 (0-0.3); Eosinophils Percent Auto 1.3 % (0-4.4); Hematocrit 43.1 % (37.0-47.0); Hemoglobin 14.2 g/dL (12.0-15.0); Immature Granulocyte Absolute 0.02 K/mm3 (0.00-0.031); Immature Granulocyte Percent A 0.3 % (0-0.5); Lymphocytes Absolute Auto 0.67 K/mm3 (0.9-3.2); Lymphocytes Percent Auto 8.6 % (18.3-44.2); Mean Corpuscular HGB Conc 32.9 g/dl (32-36); Mean Corpuscular Hemoglobin 31.7 pg (26-34); Mean Corpuscular Volume 96.2 fl (80-100); Monocytes Absolute Auto 0.5 K/mm3 (0.1-0.6); Monocytes Percent Auto 6.3 % (2.6-8.5); Neutrophils Absolute Auto 6.5 K/mm3 (1.3-6.7); Neutrophils Percent Auto 83.1 % (45.5-73.1); Platelet Count Result 195 k/mm3 (150-375); Red Blood Count 4.48 M/mm3 (4.2-5.4); Red Cell Distribution Width 12.5 % (11.5-14.5); White Blood Count 7.8 K/mm3 (4.5-10.0)
[2024-02-08 04:32] LABS: Partial Thromboplastin Time 32.9 Seconds (22.3-36.8)
[2024-02-08 04:35] LABS: Alanine Aminotransferase 29 U/L (6-35); Albumin Level 4.3 g/dL (3.5-5.1); Alkaline Phosphatase 71 U/L (38-126); Anion Gap 7 mmol/L (4-12); Aspartate Amino Transferase 30 U/L (14-36); Bilirubin,Total 1.1 mg/dL (0.2-1.3); Blood Urea Nitrogen 21 mg/dL (7-17); Calcium 9.3 mg/dL (8.4-10.2); Carbon Dioxide 25 mmol/L (22-30); Chloride 108 mmol/L (98-107); Estimated CRCL calculation 50 ml/min; Estimated Glomerular Filt Rate > 60; Glucose 147 mg/dL (65-110); Phosphorus 3.6 mg/dL (2.5-4.5); Sodium 140 mmol/L (137-145)
[2024-02-08] MEDS: LEVOTHYROXINE SODIUM INJ 100 MCG/5 ML VIAL 44 MCG IV PUSH (07:13)
--- NOTE | 2024-02-08 07:17 | WPDMODSED ---
Moderate Sedation Note-Pt Data Patient Data Diagnosis: Intermittent complete heart block with syncope Present Complaint: Syncope Procedure to be performed/Plan: Pacemaker implantation Allergies Allergy/AdvReac Type Severity Reaction Status Date / Time azithromycin Allergy Unknown Unknown Verified 12/29/23 10:03 insect venom Allergy Unknown Skin Verified 12/29/23 10:03 Reaction lactase Allergy Unknown Nausea Verified 12/29/23 10:03 nut - unspecified Allergy Unknown Unknown Verified 12/29/23 10:03 prednisone Allergy Unknown Shakiness Verified 12/29/23 10:03 buspirone AdvReac Severe Agitated Verified 12/29/23 10:03 TETANUS & DIPHTHERIA Allergy Unknown Unknown Uncoded 12/29/23 10:03 TOX,ADULT Home Medications Medication Instructions Recorded Confirmed Type Synthroid 88 mcg tablet 88 mcg PO DAILY #90 tabs 12/29/23 02/06/24 Rx (levothyroxine) clonazepam 0.5 mg tablet (Klonopin) 0.5 mg PO DAILY #30 tabs 12/29/23 02/06/24 Rx lorazepam 0.5 mg tablet 0.5 mg PO BID PRN Anxiety 02/06/24 02/06/24 History Current Medications: Active Medications Dexmedetomidine HCl (Precedex 400 Mcg/100 Ml) 400 mcg in 100 mls @ 15.4 mls/hr IV CONT .Q6H30M [facility]; Protocol Last Titration: 02/08/24 07:00 Dose: 1.1 mcg/kg/hr, 15.4 mls/hr Sodium Chloride (Normal Saline Iv) 1,000 mls @ 150 mls/hr IV CONT .Q6H40M [facility] Levothyroxine Sodium (Levothyroxine Sodium 88 Mcg Tablet) 88 mcg PO DAILY@0630 [facility] Last Admin: 02/08/24 06:05 Dose: Not Given Lorazepam (Lorazepam Inj (*Crx) 2 Mg/Ml Vial) 0.5 mg IV PUSH Q6H PRN PRN Reason: Anxiety Last Admin: 02/07/24 15:35 Dose: 0.5 mg Morphine Sulfate (Morphine Sulfate (*Crx) 2 Mg/Ml Inj) 2 mg IV PUSH Q2H PRN PRN Reason: Pain Rated 7-10, pacer pain Multi-Ingred Cream/Lotion/Oil/Oint (Mineral Oil/White Petrolatum Ointment) 1 applic EACH EYE Q12HR [facility] Last Admin: 02/07/24 21:36 Dose: 1 applic Perflutren Lipid Microsphere (Perflutren Lipid Microspheres 1.5 Ml Vial Diluted To 10 Ml Total Volume) 0 ml IV PUSH ONCE PRN; Protocol PRN Reason: adequate visualization Stop: 02/10/24 02:34 Sedation/Anesthesia: No previous sedation/anesthesia problems (including family history). [facility] Past Medical History Medical History Acne rosacea, erythematous telangiectatic type Age-related osteoporosis without current pathological fracture Arthritis Atherosclerosis of aorta Benign positional vertigo Bilateral sciatica Gastro-esophageal reflux disease with esophagitis Generalized anxiety disorder Hypothyroidism (acquired) IBS (irritable bowel syndrome) Mass of pancreas Mixed hyperlipidemia Pancreatic lesion (05/2023) Cystic lesion pancreas measuring up to 11 mm with broad differential. Panic disorder [episodic paroxysmal anxiety] Pulmonary fibrosis, unspecified Seasonal allergies Surgical History Surgical History H/O breast biopsy Status post cataract extraction of both eyes with insertion of intraocular lens Family History Family History Mother Family history of osteoporosis Family history of arthritis Family history of hearing loss Father Family history of glaucoma Other Family history of congestive heart failure Social History Social History Social History: Patient lives in her own home. Her 2 sons live nearby. Code status: Full code per EMR Smoking status: Never smoker Second hand tobacco smoke exposure: Yes Alcohol intake: never Substance use: never Substance use type: does not use Do You Feel Safe in your Home?: Yes Lack of Transportation: No Lack of Food: Never True Current Housing: I Have Housing Concerned About Future Housing: No Difficulty Paying Gas/Electric Bills: No Difficulty Paying for Meds: No Currently Unemployed: No E
--- NOTE | 2024-02-08 07:53 | WPDINTPN ---
Progress Note: A&P Assessment and Plan (1) Heart block AV third degree: Code(s): I44.2 - Atrioventricular block, complete Status: Acute Assessment and Plan: Patient presented with episode of syncope lasting 30 seconds according the son who witnessed the event. Upon arrival of the EMS patient was bradycardic in third-degree heart block, patient was brought to the ED which she remained in third-degree heart block and then obtained to sinus tachycardia. Patient was sent to the ICU for further management after cardiology being consulted -in the ICU patient was in third-degree heart block with heart rates in the upper 20s and blood pressures, dopamine was started with improvement in heart rate and blood pressure -cardiology successfully placed temporary transvenous pacer through the right IJ -discussed with cardiology, will plan to place permanent pacemaker today (2) Syncope: Qualifiers: Syncope type: carotid sinus syncope Qualified Code(s): G90.01 - Carotid sinus syncope Code(s): R55 - Syncope and collapse Status: Acute Assessment and Plan: As above (3) Essential (primary) hypertension: Code(s): I10 - Essential (primary) hypertension Status: Acute Assessment and Plan: Continue to monitor blood pressures (4) Hypothyroidism (acquired): Code(s): E03.9 - Hypothyroidism, unspecified Status: Acute Assessment and Plan: Continue levothyroxine -TSH levels are within normal limits (5) Delirium: Code(s): R41.0 - Disorientation, unspecified Status: Acute Assessment and Plan: Patient developed delirium with agitation and combativeness on the evening of 02/07/2024 -patient does have a history of dementia according the son, this could be situational delirium due to a different environment and or medical condition. -patient was given Ativan on 02/06 and started on Precedex infusion as she was kicking and punching the staff -continue Precedex infusion -will obtain UA, cause urine infections can sometimes cause diarrhea in elderly females Plan DVT prophylaxis: SCDs Stress ulcer prophylaxis: Not indicated Nutrition: NPO for now Code Status: Full code Critical Care Time Spent: 32 minutes Discussed with cardiology, permanent pacemaker today 02/06: Discussed with son and updated him with patient's condition and plan of care. He is aware that she will be getting a pacemaker on , 02/08/2024. I answered all questions Due to a high probability of clinically significant, life threatening deterioration, the patient required my highest level of preparedness to intervene emergently and I personally spent this critical care time directly and personally managing the patient. This critical care time included obtaining a history; examining the patient; pulse oximetry; ordering and review of studies; arranging urgent treatment with development of a management plan; evaluation of patient's response to treatment; frequent reassessment; and discussions with other providers. It was exclusive of separately billable procedures and treating other patients and teaching time. Please see Assessment and Plan section and the rest of the note for further information on patient assessment and treatment This dictation may have been done utilizing a voice recognition system. Attempts have been made to correct errors. However, there may be uncorrected grammatical, spelling, and recognitions errors present. Subjective Date/time seen: 02/08/24 07:53 Interval history: Reason for consult: Syncope, High-grade AV heart block (third-degree) status post temporary pacemaker placement, delirium with agitation 02/08/2024: Patient seen and examined in the ICU. Patient was delirious, agitated, kicking and pushing them nursing staff yesterday evening, her bilateral upper extremities were placed in soft restraints. Patient was started on Precedex infusion and received a dos
[2024-02-08 08:01] LABS: Appearance Urine Cloudy (Clear); Bacteria Urine None Seen /hpf; Bilirubin Urine Negative (Negative); Blood Urine 3+ (Negative); Color Urine Dark Yellow (Yellow); Glucose Urine UA Negative (Negative); Ketones Urine Trace mg/dL (Negative); Leukocyte Esterase Ur 2+ LEU/UL (Negative); Nitrate Urine Negative (Negative); Non Pathogenic Casts 0-2; Protein Urine 1+ mg/dL (Negative); RBC Urine >100 /hpf (0-2); Specific Grav Ur 1.025 (1.001-1.035); Squamous Epithelial Cell Urine Occasional /hpf (Few); Urobilinogen Urine 0.2 mg/dL (<2.0); WBC Urine 51-100 /hpf (0-3); pH Urine 5.5 (5.0-9.0)
[2024-02-08 08:05] LABS: Add Urine Microscopic? YES
[2024-02-08] MEDS: SODIUM CHLORIDE 0.9% IV 1,000 ML 150 ML IV CONT (08:30)
[2024-02-08] MEDS: dexmedeTOMIDine 400 MCG/100 ML 400 MCG/100 ML BAG 16.8 MCG IV CONT ×2 (09:44→15:14)
[2024-02-08] MEDS: cefTRIAXone 2 GM/NS 100 ML 2 GM/100 ML BAG IVPB (10:25)
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
--- NOTE | 2024-02-08 11:28 | PC.NURSE ---
laboratory clerk RNs present to transport patient to labor custodian for permanent pacemaker placement. Appropriate documentation (chart and consent) sent with patient, bedside report given to JEFF Arnold and reviewed current infusion rates of precedex and normal saline. Off unit @ 9331
--- NOTE | 2024-02-08 13:30 | ECG_ITS ---
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 Measurements Intervals [place] Rate: 62 P: -52 DC: 206 QRS: -22 QRSD: 136 T: -42 QT: 453 QTc: 463 Interpretive Statements ECTOPIC ATRIAL RHYTHM BORDERLINE AV CONDUCTION DELAY RIGHT BUNDLE BRANCH BLOCK T WAVE ABNORMALITY IN INFERIOR LEADS- CONSIDER ISCHEMIA PEAKED T WAVES- CONSIDER HYPERKALEMIA ABNORMAL ECG Compared to ECG 02/07/2024 03:28:51 Ectopic atrial rhythm now present Right bundle-branch block now present T WAVE ABNORMALITY NOW PRESENT PEAKED T WAVES NOW PRESENT Electronically Signed On 02-08-2024 16:49:53 CDT by Rashawn Berry D.O.
--- NOTE | 2024-02-08 13:33 | WPDCARDPROC ---
Cardiac Cath Procedure Note Date of procedure:: 02/08/24 Performing physician:: Michael Hernandez MD Indication:: syncope with intermittent complete heart block Brief clinical history:: this is an 78-year-old woman without significant cardiac history who comes to the hospital after experiencing syncope at home. She has been found to have intermittent complete heart block with severe bradycardia warranting implantation of a temporary transvenous pacemaker in the middle of the night. Procedure Procedure performed:: Implantation of permanent dual-chamber pacemaker Sedation/Medication given:: Precedex infusion running from the ICU additional 1 mg of midazolam during the case Access site:: left subclavian vein Estimated blood loss:: minimal Procedure note:: patient was brought to the cardiac catheterization in the postabsorptive state the patient had temporary transvenous pacemaker in place in the right internal jugular vein. The left anterior chest wall was prepped and draped in the normal fashion. Anesthesia was given with 1% lidocaine inferior to the clavicle. A venogram was done from the IV in the left upper extremity identifying the left subclavian vein. An incision was then made inferior to the clavicle from the midclavicular line to the deltopectoral groove. Electrocautery was used to provide cutaneous hemostasis and using sharp and blunt dissection the subcutaneous tissue was to the level of the prepectoral fascia. Using blunt dissection a pacemaker pocket was created inferior to the incision. Following this the pocket was packed with antibiotic soaked 4 x 4. Attention was then turned to venous access. Using 2 6 Micronesian safe sheath kit the left subclavian vein was punctured twice in the J wires were placed under fluoroscopic visualization to the level of the right atrium. Using the 6 Micronesian SafeSheath the pacemaker leads to detailed below were in placed into the venous circulation to the level of the right atrium. The Safe sheath were then peeled away and discarded. Attention was turned to positioning the ventricular lead. The stylet was withdrawn a 3 cc syringe was used to formulate a J-tip stylet. This was used then to steer the lead through the right ventricle out to the RV OT and into the pulmonary artery position. A straight stylet was replaced into the lead it was withdrawn to the right ventricular apical position. The fixation screw was deployed and the analyzer demonstrated appropriate pacing and sensing performance and a 10 volt stimulation showed no evidence of extracardiac stimulation. Attention was then turned to the atrial lead. As straight stylet was removed and a preformed atrial J was placed into the lead. This was then maneuvered into the right atrial appendage physician. The fixation screw was deployed upon withdrawal of the stylet the lead tip was fixed into position. The lead was then tested with appropriate pacing and sensing demonstrated and again a 10 volts stimulation showed no evidence of extracardiac stimulation. The leads were then sutured to the base of the pocket using 2 0 silk ties in the suture sleeve supplied with the leads. The retained sponge was removed from the pocket was then irrigated with antibiotic infused saline. The pacemaker generator was connected to the leads using the torque wrench and the entire assembly placed into the newly created pocket. The pocket was then closed in layers 3-0 Vicryl in an interrupted fashion for the subcutaneous tissue and 4-0 Vicryl in a running subcuticular fashion for the skin. The wound was dressed with an Aquacel dressing. The temporary wire was then removed from the right IJ position under fluoroscopic visualization. The patient was then taken to the ICU for post pacemaker implant recovery. Postop chest x-ray ECG and antibiotics were ordered. Findings:: Patient received a Biotronik dual-chamber pacemaker model Amvia Edge [id number]-T [id number]. s
--- NOTE | 2024-02-08 14:00 | PC.NURSE ---
Patient returned from photofinishing laboratory worker to ICU-5 @ 1400. Left arm in immobilizing sling. Operative site aquacell dressing clean/dry/intact. Right IJ temporary pacer leads were removed in cathlab, the sheath remains intact and dressing with a medium tegaderm. New IV placed in right forearm off unit, see IV assessment. Post op Chest xray and EKG obtained, family now at bedside
[2024-02-08] MEDS: SODIUM CHLORIDE 0.9% IV 1,000 ML 50 ML IV CONT (14:17)
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
[2024-02-08] MEDS: ceFAZolin 1 GM/NS 50 ML 1 GM/50 ML BAG IVPB (20:08)
[2024-02-08] MEDS: HYDROcodone/acetaminophen (*CRX) 5-325 MG TABLET 1 TAB PO (21:07)
[2024-02-08] MEDS: dexmedeTOMIDine 400 MCG/100 ML 400 MCG/100 ML BAG 15.4 MCG IV CONT (21:50)
--- NOTE | 2024-02-08 23:56 | PC.NURSE ---
Patient refusing ice pack.
[2024-02-09] VITALS (27 sets, daily range): BP systolic 104–158; BP diastolic 52–84; PULSE 60–112; RESP 13–24; TEMP 36.5–37.3; O2SAT 98–100
[2024-02-09] MEDS: ceFAZolin 1 GM/NS 50 ML 1 GM/50 ML BAG IVPB (03:25)
[2024-02-09 03:30] LABS: Basophils Percent Auto 0.4 % (0.2-1.2); Eosinophils Absolute Auto 0.1 K/mm3 (0-0.3); Eosinophils Percent Auto 0.7 % (0-4.4); Hematocrit 39.7 % (37.0-47.0); Hemoglobin 13.3 g/dL (12.0-15.0); Immature Granulocyte Absolute 0.03 K/mm3 (0.00-0.031); Immature Granulocyte Percent A 0.4 % (0-0.5); Mean Corpuscular HGB Conc 33.5 g/dl (32-36); Mean Corpuscular Volume 95.4 fl (80-100); Mean Platelet Volume 9.9 fl (7.4-10.4); Monocytes Absolute Auto 0.5 K/mm3 (0.1-0.6); Monocytes Percent Auto 6.3 % (2.6-8.5); Neutrophils Absolute Auto 6.7 K/mm3 (1.3-6.7); Neutrophils Percent Auto 80.2 % (45.5-73.1); Platelet Count Result 175 k/mm3 (150-375); Red Blood Count 4.16 M/mm3 (4.2-5.4); Red Cell Distribution Width 12.2 % (11.5-14.5); White Blood Count 8.3 K/mm3 (4.5-10.0)
[2024-02-09 03:54] LABS: Alanine Aminotransferase 22 U/L (6-35); Albumin Level 3.9 g/dL (3.5-5.1); Alkaline Phosphatase 64 U/L (38-126); Anion Gap 6 mmol/L (4-12); Aspartate Amino Transferase 26 U/L (14-36); Blood Urea Nitrogen 15 mg/dL (7-17); Calcium 8.8 mg/dL (8.4-10.2); Carbon Dioxide 25 mmol/L (22-30); Chloride 106 mmol/L (98-107); Estimated CRCL calculation 59 ml/min; Estimated Glomerular Filt Rate > 60; Glucose 135 mg/dL (65-110); Magnesium 1.8 mg/dL (1.6-2.3); Potassium 3.5 mmol/L (3.4-5.0); Sodium 137 mmol/L (137-145)
[2024-02-09] MEDS: dexmedeTOMIDine 400 MCG/100 ML 400 MCG/100 ML BAG 15.4 MCG IV CONT (04:10)
[2024-02-09] MEDS: LEVOTHYROXINE SODIUM 88 MCG TABLET PO (05:38)
[2024-02-09] MEDS: clonazePAM (*CRX) 0.5 MG TABLET PO (08:03)
[2024-02-09] MEDS: POTASSIUM CHLORIDE 20 MEQ PACKET (FOR LIQUID) 40 MEQ PO (08:03)
--- NOTE | 2024-02-09 09:35 | WPDINTPN ---
Progress Note: A&P Assessment and Plan (1) Heart block AV third degree: Code(s): I44.2 - Atrioventricular block, complete Status: Acute Assessment and Plan: Patient presented with episode of syncope lasting 30 seconds according the son who witnessed the event. Upon arrival of the EMS patient was bradycardic in third-degree heart block, patient was brought to the ED which she remained in third-degree heart block and then obtained to sinus tachycardia. Patient was sent to the ICU for further management after cardiology being consulted -in the ICU patient was in third-degree heart block with heart rates in the upper 20s and blood pressures, dopamine was started with improvement in heart rate and blood pressure -cardiology successfully placed temporary transvenous pacer through the right IJ -02/08/2024, dual lead permanent pacemaker placed by Cardiology (2) Syncope: Qualifiers: Syncope type: carotid sinus syncope Qualified Code(s): G90.01 - Carotid sinus syncope Code(s): R55 - Syncope and collapse Status: Acute Assessment and Plan: As above (3) Essential (primary) hypertension: Code(s): I10 - Essential (primary) hypertension Status: Acute Assessment and Plan: Continue to monitor blood pressures (4) Hypothyroidism (acquired): Code(s): E03.9 - Hypothyroidism, unspecified Status: Acute Assessment and Plan: Continue levothyroxine -TSH levels are within normal limits (5) Delirium: Code(s): R41.0 - Disorientation, unspecified Status: Acute Assessment and Plan: Patient developed delirium with agitation and combativeness on the evening of 02/07/2024 -patient does have a history of dementia according the son, this could be situational delirium due to a different environment and or medical condition. -patient was given Ativan on 02/06 and started on Precedex infusion as she was kicking and punching the staff -patient remains on Precedex infusion, have passed the bedside RN to start weaning the infusion to a -02/08: Patient more awake, alert, oriented x2, not agitated and combative this morning. -will start patient's home Klonopin and p.r.n. Xanax (6) UTI (urinary tract infection): Code(s): N39.0 - Urinary tract infection, site not specified Status: Acute Assessment and Plan: 02/07: Given delirium in an elderly female UA was ordered which revealed UTI -continue ceftriaxone ( 02/07) -02/07: urine cultures obtained and pending Plan DVT prophylaxis: SCDs Stress ulcer prophylaxis: Not indicated Nutrition: Heart healthy diet Code Status: Full code Critical Care Time Spent: 32 minutes Discussed with cardiology 02/08: Discussed with son and updated him with patient's condition and plan of care. I answered all questions Due to a high probability of clinically significant, life threatening deterioration, the patient required my highest level of preparedness to intervene emergently and I personally spent this critical care time directly and personally managing the patient. This critical care time included obtaining a history; examining the patient; pulse oximetry; ordering and review of studies; arranging urgent treatment with development of a management plan; evaluation of patient's response to treatment; frequent reassessment; and discussions with other providers. It was exclusive of separately billable procedures and treating other patients and teaching time. Please see Assessment and Plan section and the rest of the note for further information on patient assessment and treatment This dictation may have been done utilizing a voice recognition system. Attempts have been made to correct errors. However, there may be uncorrected grammatical, spelling, and recognitions errors present. Subjective Date/time seen: 02/09/24 09:35 Interval history: Reason for consult: Syncope, High-grade AV heart block (third-degree)
[2024-02-09] MEDS: cefTRIAXone 2 GM/NS 100 ML 2 GM/100 ML BAG IVPB (11:15)
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
--- NOTE | 2024-02-09 13:48 | PC.NURSE ---
Patient off unit with JEFF Ramsay to accompany on transport for post op 24 hr pace maker insertion 2 view chest x ray @ 1348 Returned to ICU 5 @ 1400
[2024-02-09] MEDS: ACETAMINOPHEN 500 MG TABLET 1000 MG PO ×2 (17:37→23:41)
[2024-02-09] MEDS: LORazepam (*CRX) 0.5 MG TABLET PO (17:38)
[2024-02-09] MEDS: HYDROcodone/acetaminophen (*CRX) 5-325 MG TABLET 1 TAB PO (20:47)
[2024-02-10] VITALS (14 sets, daily range): BP systolic 130–173; BP diastolic 60–82; PULSE 85–119; RESP 14–31; TEMP 36.4–37.4; O2SAT 96–100
[2024-02-10] MEDS: LORazepam INJ (*CRX) 2 MG/ML VIAL 0.5 MG IV PUSH (00:03)
[2024-02-10] MEDS: HYDROcodone/acetaminophen (*CRX) 5-325 MG TABLET 1 TAB PO (02:49)
[2024-02-10 05:45] LABS: Basophils Percent Auto 0.4 % (0.2-1.2); Eosinophils Absolute Auto 0.1 K/mm3 (0-0.3); Hemoglobin 14.1 g/dL (12.0-15.0); Immature Granulocyte Absolute 0.03 K/mm3 (0.00-0.031); Immature Granulocyte Percent A 0.3 % (0-0.5); Lymphocytes Absolute Auto 1.68 K/mm3 (0.9-3.2); Mean Corpuscular HGB Conc 33.6 g/dl (32-36); Mean Corpuscular Hemoglobin 31.7 pg (26-34); Mean Corpuscular Volume 94.4 fl (80-100); Mean Platelet Volume 9.9 fl (7.4-10.4); Monocytes Absolute Auto 0.9 K/mm3 (0.1-0.6); Monocytes Percent Auto 9.2 % (2.6-8.5); Neutrophils Absolute Auto 6.6 K/mm3 (1.3-6.7); Neutrophils Percent Auto 71.1 % (45.5-73.1); Platelet Count Result 214 k/mm3 (150-375); Red Blood Count 4.45 M/mm3 (4.2-5.4); Red Cell Distribution Width 12.1 % (11.5-14.5); White Blood Count 9.3 K/mm3 (4.5-10.0)
[2024-02-10] MEDS: LORazepam (*CRX) 0.5 MG TABLET PO (05:52)
[2024-02-10] MEDS: LEVOTHYROXINE SODIUM 88 MCG TABLET PO (05:52)
[2024-02-10] MEDS: ACETAMINOPHEN 500 MG TABLET 1000 MG PO ×2 (05:52→12:30)
[2024-02-10 06:03] LABS: Alanine Aminotransferase 20 U/L (6-35); Albumin Level 4.3 g/dL (3.5-5.1); Alkaline Phosphatase 69 U/L (38-126); Anion Gap 8 mmol/L (4-12); Aspartate Amino Transferase 28 U/L (14-36); Bilirubin,Total 1.1 mg/dL (0.2-1.3); Blood Urea Nitrogen 16 mg/dL (7-17); Calcium 8.9 mg/dL (8.4-10.2); Carbon Dioxide 21 mmol/L (22-30); Chloride 106 mmol/L (98-107); Estimated CRCL calculation 50 ml/min; Estimated Glomerular Filt Rate > 60; Glucose 110 mg/dL (65-110); Magnesium 1.7 mg/dL (1.6-2.3); Phosphorus 3.2 mg/dL (2.5-4.5); Potassium 3.5 mmol/L (3.4-5.0); Sodium 135 mmol/L (137-145)
[2024-02-10] MEDS: hydrALAZINE HCL 20 MG/ML VIAL 10 MG IV PUSH (07:04)
[2024-02-10] MEDS: amLODIPine BESYLATE 5 MG TABLET PO (07:51)
[2024-02-10] MEDS: clonazePAM (*CRX) 0.5 MG TABLET PO (07:52)
--- NOTE | 2024-02-10 08:13 | WPDINTPN ---
Progress Note: A&P Assessment and Plan (1) Heart block AV third degree: Code(s): I44.2 - Atrioventricular block, complete Status: Acute Assessment and Plan: Patient presented with episode of syncope lasting 30 seconds according the son who witnessed the event. Upon arrival of the EMS patient was bradycardic in third-degree heart block, patient was brought to the ED which she remained in third-degree heart block and then obtained to sinus tachycardia. Patient was sent to the ICU for further management after cardiology being consulted -in the ICU patient was in third-degree heart block with heart rates in the upper 20s and blood pressures, dopamine was started with improvement in heart rate and blood pressure -cardiology successfully placed temporary transvenous pacer through the right IJ -02/08/2024, dual lead permanent pacemaker placed by Cardiology (2) Syncope: Qualifiers: Syncope type: carotid sinus syncope Qualified Code(s): G90.01 - Carotid sinus syncope Code(s): R55 - Syncope and collapse Status: Acute Assessment and Plan: As above (3) Essential (primary) hypertension: Code(s): I10 - Essential (primary) hypertension Status: Acute Assessment and Plan: Started low-dose amlodipine (4) Hypothyroidism (acquired): Code(s): E03.9 - Hypothyroidism, unspecified Status: Acute Assessment and Plan: Continue levothyroxine -TSH levels are within normal limits (5) Delirium: Code(s): R41.0 - Disorientation, unspecified Status: Acute Assessment and Plan: Patient developed delirium with agitation and combativeness on the evening of 02/07/2024 -patient does have a history of dementia according the son, this could be situational delirium due to a different environment and or medical condition. -patient was given Ativan on 02/06 and started on Precedex infusion as she was kicking and punching the staff -patient remains on Precedex infusion, have passed the bedside RN to start weaning the infusion to a -02/08: Patient more awake, alert, oriented x2, not agitated and combative this morning. -02/08: Off Precedex infusion -continue home home Klonopin and p.r.n. Xanax (6) UTI (urinary tract infection): Code(s): N39.0 - Urinary tract infection, site not specified Status: Acute Assessment and Plan: 02/07: Given delirium in an elderly female UA was ordered which revealed UTI -continue ceftriaxone ( 02/07) -02/07: urine cultures with no growth Plan DVT prophylaxis: SCDs Stress ulcer prophylaxis: Not indicated Nutrition: Heart healthy diet Code Status: Full code Critical Care Time Spent: 32 minutes 02/09: : Discussed with son and updated him with patient's condition and plan of care. I answered all questions Due to a high probability of clinically significant, life threatening deterioration, the patient required my highest level of preparedness to intervene emergently and I personally spent this critical care time directly and personally managing the patient. This critical care time included obtaining a history; examining the patient; pulse oximetry; ordering and review of studies; arranging urgent treatment with development of a management plan; evaluation of patient's response to treatment; frequent reassessment; and discussions with other providers. It was exclusive of separately billable procedures and treating other patients and teaching time. Please see Assessment and Plan section and the rest of the note for further information on patient assessment and treatment This dictation may have been done utilizing a voice recognition system. Attempts have been made to correct errors. However, there may be uncorrected grammatical, spelling, and recognitions errors present. Subjective Date/time seen: 02/10/24 08:13 Interval history: Reason for consult: Syncope, High-grade AV heart block (third-degree) status post t
--- NOTE | 2024-02-10 10:12 | PCOTNOTE ---
Attempted to see for OT evaluation. Patient declining any/all activity. Stating, I don't need you, get out. Will continue to attempt.
[2024-02-10] MEDS: cefTRIAXone 2 GM/NS 100 ML 2 GM/100 ML BAG IVPB (10:17)
[2024-02-10] MEDS: POTASSIUM CHLORIDE 20 MEQ PACKET (FOR LIQUID) 40 MEQ PO (10:19)
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
--- NOTE | 2024-02-10 12:57 | PM.DS ---
DS: Admitting Diagnosis Discharge Date 02/10/2024 Admitting Diagnosis Syncope DS: Discharge Diagnosis Discharge Diagnosis (1) Heart block AV third degree: Code(s): I44.2 - Atrioventricular block, complete Status: Acute (2) Syncope: Qualifiers: Syncope type: carotid sinus syncope Qualified Code(s): G90.01 - Carotid sinus syncope Code(s): R55 - Syncope and collapse Status: Acute (3) Essential (primary) hypertension: Code(s): I10 - Essential (primary) hypertension Status: Acute (4) Hypothyroidism (acquired): Code(s): E03.9 - Hypothyroidism, unspecified Status: Acute (5) Delirium: Code(s): R41.0 - Disorientation, unspecified Status: Acute (6) UTI (urinary tract infection): Code(s): N39.0 - Urinary tract infection, site not specified Status: Acute DS: Summary Hospital Course Hospital Course: Patient presented with episode of syncope lasting 30 seconds according to the son who witnessed the event. Upon arrival of the EMS patient was bradycardic and third-degree AV block. Patient was brought to the ED and remained in third-degree AV block. Patient was admitted to ICU. Cardiology was consulted. Dopamine was started with improvement in the heart rate and blood pressure. Cardiology placed temporary transvenous pacer through right IJ on 02/07/2024. Will lead pulmonary pacemaker was placed eventually on 02/08/2024. She was started on amlodipine for high blood pressure. Patient was also delirious with agitation and combativeness on the evening of 02/07/2024. His history of dementia. She was given Ativan and was also started on Precedex drip as she was kicking and punching the staff. She was off Precedex on 02/09/2024. Home Klonopin and Xanax p.r.n. was resumed. She was also noted to have UTI urine culture growth with no growth. She was treated with ceftriaxone in the hospital. Will be switched to oral antibiotics at discharge. She was more alert and oriented by the time of discharge vitals were stable. Okay per Cardiology to discharge. PT OT also saw the patient and cleared for discharge Time Spent with Patient Time attestation: Total time spent providing and/or coordinating discharge services: 35 minutes Exam Narrative: General: Patient is awake, alert with slight confusion and anxiety, in no obvious distress HEENT:? Pupils equal reactive, sclera is clear Neck:? Supple Respiratory:? Clear to auscultation bilaterally no respiratory distress Cardiac:? Sinus tachycardia Abdomen:? Soft, nontender, nondistended, normoactive bowel sounds Extremities:? Warm, no edema, palpable pedal pulses Neuro:? Patient is awake, alert, confused, but answers to questions appropriately and follows simple commands Skin:? No skin lesions noted Psych:? Anxious, tearful DS: Data Data Completed and Pending Completed studies during hospitalization: Exam Type: ? ? CA echo doppler color flow Study Info Indications ? ? R00.1 - Bradycardia,? unspecified Complete two-dimensional, color flow and Doppler transthoracic echocardiogram is performed. Account #: ? ? [id number] Summary ? 1. Complete two-dimensional, color flow and Doppler transthoracic echocardiogram is performed. ? 2. Left ventricular chamber dimension is normal. ? 3. Left ventricular systolic function is normal, estimated at 65-70%. ? 4. There is mildly increased left ventricular wall thickness. ? 5. The left ventricular diastolic function is grade I diastolic dysfunction. ? 6. Left atrial chamber dimension is mildly enlarged. ? 7. There is mild aortic valve stenosis with a peak velocity of 225 cm/s, mean gradient of 10 mmHg, and aortic valve area of 1.6 cm2. ? 8. There is moderate aortic valve calcification. ? 9. The mitral valve has thickened leaflets. ? 10. There is mild mitral valve stenosis. ? 11. There is mild mitral valve regurgitation. ? 12. The mitral valve annulus is mildly
== END 2024-02-10 13:18 | disposition home or self-care (01) | DRG 243 ==
LOC: ANHED 21:49 → ANHICU 23:03
PROVIDERS: Emergency Medicine; Internal Medicine; Specialist; Admitting Provider Internal Medicine; Emergency Provider Emergency Medicine; PCP Family Medicine; Visit Provider Internal Medicine
PROC: 5A1223Z Performance of Cardiac Pacing, Continuous (ICD-10-PCS; CPT 33210; principal; 2024-02-07 04:00)
PROC: 0JH606Z Insertion of Pacemaker, Dual Chamber into Chest Subcutaneous Tissue and Fascia, Open Approach (ICD-10-PCS; CPT 33208; principal; 2024-02-08 12:00)
DX: I44.2 Atrioventricular block, complete (principal); N39.0 Urinary tract infection, site not specified; R55 Syncope and collapse; E03.9 Hypothyroidism, unspecified; E78.2 Mixed hyperlipidemia; F03.90 Unspecified dementia, unspecified severity, without behavioral disturbance, psychotic disturbance, mood disturbance, and anxiety; F41.0 Panic disorder [episodic paroxysmal anxiety]; H81.10 Benign paroxysmal vertigo, unspecified ear; I10 Essential (primary) hypertension; K21.9 Gastro-esophageal reflux disease without esophagitis; K58.9 Irritable bowel syndrome, unspecified; M19.90 Unspecified osteoarthritis, unspecified site; Z98.41 Cataract extraction status, right eye; Z98.42 Cataract extraction status, left eye; Z96.1 Presence of intraocular lens
CPT/HCPCS: 33208; 33210; 36415; 71045; 71046; 80053; 81001; 83690; 83735; 84100; 84436; 84443; 84484; 85025; 85610; 85730; 87086; 87641; 93005; 93306; 96374; 97162; 97165; 97530; 99285; A9270; C1779; C1785; C1894; J0360; J0461; J0650; J0690; J0696; J1265; J2060; J2250; J3010; J7030; J7040

== ENCOUNTER 2024-06-18 13:39 | Outpatient (CLI) | payer MEDICARE, BC, SELFPAY | END 2024-06-18 13:40 | disposition home or self-care (01) | LOC: ANHGOSHLAB 13:40 | PROVIDERS: PCP Family Medicine; Visit Provider Family Medicine | DX: E03.9 Hypothyroidism, unspecified (principal) | CPT/HCPCS: 36415; 84443 ==

== ENCOUNTER 2024-09-09 09:20 | Outpatient (CLI) | payer MEDICARE, BC, SELFPAY | END 2024-09-09 09:21 | disposition home or self-care (01) | LOC: ANHGOSHLAB 09:21 | PROVIDERS: PCP Family Medicine; Visit Provider Family Medicine | DX: E03.9 Hypothyroidism, unspecified (principal) | CPT/HCPCS: 36415; 84443 ==

== ENCOUNTER 2025-01-29 13:43 | Outpatient (CLI) | payer MEDICARE, BC, SELFPAY ==
--- OUTSIDE RECORDS SUMMARY | 2025-01-29 13:53 | XMS_ITS | Referral Summary ---
Author Organization [facility] [address] Address [address] [place] [address] Care Team Providers Care Bearing Inspector Name Role Phone Michael Nick MD Primary Care Provider [phone] Encounters Date Type Department Care Team Description 01/07/2025 Orders Only [facility] Medical [facility] Cardiology [address] [place] [address] [place] [phone] Michael Hernandez MD Cardiac pacemaker in situ (Primary Dx); Complete heart block (HCC) 01/07/2025 8:15 AM CDT Ancillary Procedure [facility] Cardiology [address] [place] [address] [place] [phone] Complete heart block (HCC); Cardiac pacemaker in situ from Last 3 Months Allergies Active Allergy Reactions Criticality Noted Date Comments Pecan Nut Anaphylaxis High 09/16/2019 Prednisone Unknown 04/28/2021 Tetanus-Diphtheria Toxoids-Td Unknown 2020 Tilactase Nausea only Low 04/28/2021 Azithromycin Unknown 01/04/2018 Medications fluticasone (FLONASE) 50 mcg/actuation nasal spray Administer 1 spray into each nostril daily Active meloxicam (MOBIC) 7.5 mg tablet Take 1 tablet (7.5 mg total) by mouth daily Active predniSONE (DELTASONE) 20 mg tablet continuously as needed 3 Active clonazePAM (KlonoPIN) 0.5 mg tablet Take 1 tablet (0.5 mg total) by mouth daily 4 Active meclizine (ANTIVERT) 12.5 mg tablet Take 1 tablet (12.5 mg total) by mouth 3 (three) times a day as needed for dizziness Active amLODIPine (NORVASC) 5 mg tablet Take 1 tablet (5 mg total) by mouth daily Active levothyroxine (SYNTHROID) 75 mcg tablet Take 1 tablet (75 mcg total) by mouth tanning wheel filler before breakfast Active QUEtiapine (SEROquel) 50 mg tablet Take 1 tablet (50 mg total) by mouth 2 (two) times a day Active Active Problems Problem Noted Date Diagnosed Date Complete heart block 03/06/2024 Visit for wound check 02/19/2024 Cardiac pacemaker in situ 02/09/2024 Overview (02/09/2024): [employer]ant[employer]IB[employer] It Joo CANALES dual pacemaker. Dx: CHB. DOI 02/08/2024- Kool [employer] remote. Murmur, heart 12/28/2022 Palpitations 01/04/2018 Social History Tobacco Use Types Packs/Day Years Used Date Smoking Tobacco: Never Smokeless Tobacco: Never Tobacco Cessation:Counseling Given: Not Answered Alcohol Use Standard Drinks/Week Comments No 0 (1 standard drink = 0.6 oz pur e alcohol) Comments Unknown Sex and Gender Information Value Date Recorded Sex Assigned at Not on file Legal Sex Female 6:54 PM SALES ESTIMATOR Gender Identity Female 12/28/2022 10:15 AM CDT Sexual Orientation Not on file Last Filed Vital Signs Vital Sign Reading Time Taken Comments Blood Pressure 120/76 09/09/2024 8:44 AM SALES ESTIMATOR Pulse 87 09/09/2024 8:44 AM SALES ESTIMATOR Temperature - - Respiratory Rate 02/20/2018 10:27 AM CDT Oxygen Saturation 99% 09/09/2024 8:44 AM SALES ESTIMATOR Inhaled Oxygen Concentration - - Weight 54 kg (119 lb) 09/09/2024 8:44 AM SALES ESTIMATOR Height 157.5 cm (5' 2 ) 09/09/2024 8:44 AM SALES ESTIMATOR Body Mass Index 21.77 09/09/2024 8:44 AM SALES ESTIMATOR Plan of Treatment Not on file Procedures Procedure Name Priority Date/Time Associated Diagnosis Comments DEVICE CHECK - REMOTE Routine 01/07/2025 8:57 AM CDT Complete heart block (HCC) Cardiac pacemaker in situ from Last 3 Months Results * DEVICE CHECK - REMOTE (01/07/2025 8:57 AM CDT) Anatomical Region Laterality Modality Other Narrative 01/14/2025 1:27 PM CDT Biotronik Amvia Edge DR-T Dual Pacemaker. Dx: CHB. DOI 02/08/2024-Mary. Biotronik remote. Routine DDD Pacemaker Remote. Transmission attached. Battery status: Ok, 90% remaining battery life to FABIO. Stable lead impedances, pacing and sensing thresholds. Presenting rhythm: BOTTLE LABEL INSPECTOR. AP-32%, BOTTLE LABEL INSPECTOR-94%. No AT/AF episodes noted. No Ventricular high rate episodes detected. Medications: Norvasc. See scanned report. Office pacemaker follow up: 07/02/2025. Biotronik remote f/u 04/15/2025. Maryann Kraft RN Michael Hernandez MD CV CARDIAC SERVICES PROC EDURES Final Result from Last 3 Months Insurance MEDICARE MEDICARE [facility] FEDER[facility] Member Subscriber Plan / Payer (Ef fective 2001-Present) Name:Jannie Epps Relation to Subscriber:Self Name:Jannie Epps Payer ID:[id number] (NAIC) Group ID:[id number] Type:[facility] Address: [address] [place] [id number] Care Teams Bearing Inspector Relationship Specialty Start Date End Date Michael Nick MD PCP - General Family Medicine 12/20/17
--- OUTSIDE RECORDS SUMMARY | 2025-01-29 13:53 | XMS_ITS | Clinical Summary ---
Author Organization [facility] [address] Address [address] [place] [address] Care Team Providers Care Bench Scientist Name Role Phone Michael Nick MD Primary Care Provider [phone] Allergies Active Allergy Reactions Criticality Noted Date [...] 1 tablet (75 mcg total) by mouth lead custodian before breakfast Active QUEtiapine (SEROquel) 50 mg tablet Take 1 tablet (50 mg total) by mouth 2 (two) times a day 4 Active Active Problems Problem Noted Date Diagnosed Date Complete heart block 03/06/2024 Visit for wound check 02/19/2024 Cardiac pacemaker in situ 02/09/2024 Overview (02/09/2024): BIOTRONIK Joo CANALES dual pacemaker. Dx: CHB. DOI 02/08/2024-Fleissner. lBackronicynthia remote. Murmur, heart 12/28/2022 Palpitations 01/04/2018 Encounters Date Type Department Care Team Description 01/07/2025 8:15 AM CDT Ancillary Procedure [facility] Cardiology [address] [place] [phone] Complete heart block (HCC); Cardiac pacemaker in situ 01/07/2025 Orders Only [facility] Cardiology [address] [place] [phone] Michael Hernandez MD Cardiac pacemaker in situ (Primary Dx); Complete heart block (HCC) from Last 3 Months Surgical History Surgery Date Site/Laterality Comments BREAST BIOPSY Medical History Medical History Date Comments Thyroid disease Arthritis Hypertension Murmur Nonrheumatic aortic valve disorder GERD (gastroesophageal reflux disease) IBS (irritable bowel syndrome) Family History Medical History Relation Name Comments Heart attack Brother 1 Hyperlipidemia Brother 2 Heart failure Mother Hypertension Mother Diabetes Sister Hyperlipidemia Sister Hypertension Sister Relation Name Status Comments Brother 1 (Age 68) Brother 2 (Age 70) C-diff Father (Age 83) sepsis Mother (Age 86) Sister Alive Social History Tobacco Use Types Packs/Day Years Used Date Smoking Tobacco: Never Smokeless Tobacco: Never Tobacco Cessation:Counseling Given: Not Answered Alcohol Use Standard Drinks/Week Comments No 0 (1 standard drink = 0.6 oz pur e alcohol) Comments Unknown Sex and Gender Information Value Date Recorded Sex Assigned at Not on file Legal Sex Female 6:54 PM PHYSICS INSTRUCTOR Gender Identity Female 12/28/2022 10:15 AM CDT Sexual Orientation Not on file Obstetrics History Last Filed Vital Signs Vital Sign Reading Time Taken Comments Blood Pressure 120/76 09/09/2024 8:44 AM PHYSICS INSTRUCTOR Pulse 87 09/09/2024 8:44 AM PHYSICS INSTRUCTOR Temperature - - Respiratory Rate 12 02/20/2018 10:27 AM CDT Oxygen Saturation 99% 09/09/2024 8:44 AM PHYSICS INSTRUCTOR Inhaled Oxygen Concentration - - Weight 54 kg (119 lb) 09/09/2024 8:44 AM PHYSICS INSTRUCTOR Height 157.5 cm (5' 2 ) 09/09/2024 8:44 AM PHYSICS INSTRUCTOR Body Mass Index 21.77 09/09/2024 8:44 AM PHYSICS INSTRUCTOR Plan of Treatment Health Maintenance Due Date Last Done Comments Depression Screening 1943 Fall Risk Assessment 1943 Osteoporosis Screening-Bone Density Scan 1943 DTaP/Tdap/Td Vaccine (1 - Tdap) 1954 Hepatitis B Screening 1961 Pneumococcal vaccine 65+ (1 of 1 - PCV) 1993 Zoster Vaccine (1 of 2) 1993 Well Visit 65+ 2008 Covid-19 Vaccine (4 - 2023-2 5 season) 2024 08/10/2021, 12/28/2020, 11/30/2020 Influenza Vaccine (Season Ended) 2025 06/01/2022, 06/23/2021, 06/22/2020, Additional history exists Procedures Procedure Name Priority Date/Time Associated Diagnosis Comments DEVICE CHECK - REMOTE Routine 01/07/2025 8:57 AM CDT Complete heart block (HCC) Cardiac pacemaker in situ from Last 3 Months Results * DEVICE CHECK - REMOTE (01/07/2025 8:57 AM CDT) Anatomical Region Laterality Modality Other Narrative 01/14/2025 1:27 PM CDT Real[employer]iFitsistant Amvia Tony DR-T Dual Pacemaker. Dx: CHB. DOI 02/08/2024-Mary. Real[employer]ik remote. Routine DDD Pacemaker Remote. Transmission attached. Battery status: Ok, 90% remaining battery life to FABIO. Stable lead impedances, pacing and sensing thresholds. Presenting rhythm: SAFETY TECHNICIAN. AP-32%, SAFETY TECHNICIAN-94%. No AT/AF episodes noted. No Ventricular high rate episodes detected. Medications: Norvasc. See scanned report. Office pacemaker follow up: 07/02/2025. Biotronik remote f/u 04/15/2025. Maryann Kraft, RN Michael Heranndez MD CV CARDIAC SERVICES PROC [facility] Final Result from Last 3 Months Insurance MEDICARE MEDICARE [facility] Care Teams Bench Scientist Relationship Specialty Start Date End Date Michael Nick MD PCP - General Family Medicine 12/20/17
== END 2025-01-29 13:44 | disposition home or self-care (01) ==
PROVIDERS: PCP Family Medicine; Visit Provider Family Medicine
DX: E03.9 Hypothyroidism, unspecified (principal)
CPT/HCPCS: 36415; 84443